=== PATIENT | male | born 1960 | race Asian ===

== ENCOUNTER 2018-11-12 14:37 | Outpatient (REF) | payer MEDICAID, SELFPAY ==
[2018-11-12 18:40] LABS: ALT 28 U/L (12-78); AST 18 U/L (15-37); Albumin 3.7 g/dL (3.4-5.0); Alkaline Phosphatase 76 U/L (46-116); BUN 10 mg/dL (7-18); Bilirubin, Total 0.8 mg/dL (0.2-1.0); CREATININE 0.75 mg/dL (0.70-1.30); Calculated LDL 67 mg/dL; Chloride 105 mmol/L (98-107); Cholesterol 142 mg/dL (50-200); Glucose 89 mg/dL (70-100); HDL Cholesterol 63 mg/dL (40-60); Sodium 143 mmol/L (136-145); Total Protein 7.2 g/dL (6.4-8.2); Triglyceride 61 mg/dL (30-150)
== END 2018-11-12 14:57 ==
LOC: NCHCN 14:37
PROVIDERS: PCP Nurse Practitioner Family; Visit Provider Nurse Practitioner
DX: I10 Essential (primary) hypertension (principal)
CPT/HCPCS: 80053; 80061; 83721

== ENCOUNTER 2020-01-01 10:54 | Outpatient (REF) | payer MEDICAID, SELFPAY ==
[2020-01-01 23:27] LABS: ALT 41 U/L (16-63); AST 26 U/L (15-37); Albumin 3.8 g/dL (3.4-5.0); Alkaline Phosphatase 60 U/L (46-116); Anion Gap 13.4 mmol/L (3-11); BUN 14 mg/dL (7-18); Bilirubin, Total 0.8 mg/dL (0.2-1.0); CO2 23.6 mmol/L (21.0-32.0); CREATININE 0.88 mg/dL (0.70-1.30); Calcium 8.8 mg/dL (8.5-10.1); Calculated LDL 84 mg/dL (<100); Chloride 106 mmol/L (98-107); Cholesterol 161 mg/dL (<200); Glucose 101 mg/dL (74-106); HDL Cholesterol 63 mg/dL (40-60); Potassium 4.1 mmol/L (3.5-5.1); Sodium 143 mmol/L (136-145); Triglyceride 73 mg/dL (<150)
[2020-01-02 18:08] LABS: PSA, Screening 0.2 ng/mL (0.0-4.5)
== END 2020-01-01 11:14 ==
LOC: NCHCN 10:54
PROVIDERS: PCP Nurse Practitioner Family; Visit Provider Nurse Practitioner
DX: I10 Essential (primary) hypertension (principal); Z72.0 Tobacco use; Z12.5 Encounter for screening for malignant neoplasm of prostate
CPT/HCPCS: 80053; 80061; 84153

== ENCOUNTER 2021-02-09 01:13 | Outpatient (CLI) | payer MEDICAID, SELFPAY ==
--- NOTE | 2021-02-09 | DI.CTLCSR_ITS ---
Exam(s) CT CHEST LUNG CANCER SCREEN EXAM: CT CHEST LUNG CANCER SCREEN CLINICAL HISTORY: SCREENING FOR LUNG CA, CURRENT SMOKER, Z72.0. TECHNIQUE: Imaging Protocol: Low Dose Technique CONTRAST MATERIAL: None COMPARISON: No exams were available for comparison FINDINGS: CHEST: Images mildly degraded by motion artifact. LUNGS: There are no ominous pulmonary nodules. Some air trapping is noted in the lower lobes but doub tful for confluent infiltrates. No pleural effusions. No pleural effusions. MEDIASTINUM: There is no obvious hilar nor mediastinal adenopathy. CARDIAC: Heart size is normal. There is no pericardial effusion.Caliber of the thoracic aorta is wit hin normal limits. OTHER: OSSEOUS: No significant osseous lesions.. IMPRESSION: 1. No significant pulmonary nodules nor pleural effusions. No intrathoracic adenopathy. 2. Mild air trapping noted in both lower lobes. 3. Lung RADS Cat 1 - Negative: No nodules and definitely benign nodules Lung-RADS 1.0 CATEGORIES: Category 0 - Prior chest CT exam(s) being located for comparison. Category 1 - Annual screening in 12 months. No nodules or definitely benign nodules. Category 2 - Annual screening in 12 months. Benign appearance. Nodules with low likelihood of becomin g active cancer. Category 3 - 6-month follow-up. Probably benign. Short-term follow-up suggested. Nodules with low lik elihood of becoming active cancer. Category 4A - 3-month follow-up and CT/PET if >8 mm in size. Suspicious finding. Findings which requi re additional testing. Category 4B - Findings which require additional testing and tissue sampling. Modifier S- Potentially clinically significant findings (non lung cancer) RADIATION DOSE DELIVERED: 80.89mGy.cm Total DLP 1.84mGy CTDIvol DATA REPOSITORY: All CT scans at this facility are submitted to the National Radiology Data Registry (NRDR) Dose Index Registry (DIR) with the [employer] ([employer]). RADIATION OPTIMIZATION: All CT scans at this facility use at least one of these dose optimization te chniques: automated exposure control; mA and/or kV adjustment per patient size (includes targeted exa ms where dose is matched to clinical indication); or iterative reconstruction.
== END 2021-02-09 01:33 ==
PROVIDERS: PCP Nurse Practitioner Family; Visit Provider Nurse Practitioner
DX: Z72.0 Tobacco use (principal); Z12.2 Encounter for screening for malignant neoplasm of respiratory organs; F17.210 Nicotine dependence, cigarettes, uncomplicated
CPT/HCPCS: 71271

== ENCOUNTER 2021-07-14 17:48 | Outpatient (REF) | payer MEDICAID, SELFPAY ==
[2021-07-14 14:33] LABS: Abs Immature Grans 0.01 10^3/uL (0.0-0.06); Absolute Basophil Count 0.04 10^3/uL (0.0-0.2); Absolute Eosinophil Count 0.21 10^3/uL (0.0-0.7); Absolute Lymphocyte Count 1.64 10^3/uL (1.2-3.4); Absolute Monocyte Count 0.51 10^3/uL (0.1-0.8); Absolute Neutrophil Count 3.13 10^3/uL (1.2-6.7); Basophils % 0.7; Eosinophils % 3.8; HCT 41.2 % (40.0-50.0); HGB 13.3 g/dL (13.5-17.5); Immature Grans % 0.2; Lymphocytes % 29.6; MCH 32.8 pg (27.0-33.0); MCHC 32.3 % (32.0-36.0); MCV 101.5 fL (80-95); MPV 10.7 fL (8.0-11.0); Monocytes % 9.2; Neutrophils % 56.5; Nucleated RBC 0 %; Platelet Count 280 10^3/uL (130-400); RBC 4.06 10^6/uL (4.36-5.78); RDW 12.4 % (11.8-14.1); RDW-SD 46.5 fL; WBC 5.54 10^3/uL (4.4-10.8)
[2021-07-14 15:02] LABS: ALT 38 U/L (16-63); AST 29 U/L (15-37); Albumin 4.2 g/dL (3.4-5.0); Alkaline Phosphatase 63 U/L (46-116); Anion Gap 9.9 mmol/L (3-11); BUN 16 mg/dL (7-18); Bilirubin, Total 1.1 mg/dL (0.2-1.0); CO2 26.1 mmol/L (21.0-32.0); CREATININE 0.9 mg/dL (0.70-1.30); Calcium 9.7 mg/dL (8.5-10.1); Chloride 99 mmol/L (98-107); Glucose 97 mg/dL (74-106); Potassium 4.1 mmol/L (3.5-5.1); Sodium 135 mmol/L (136-145); Total Protein 8.2 g/dL (6.4-8.2)
[2021-07-15 09:38] LABS: Hepatitis C Ab w Rflx HCV PCR Negative (Negative)
[2021-07-15 09:56] LABS: HIV-1/2 Ag & Ab Screen Negative (Negative)
== END 2021-07-14 17:49 | disposition home or self-care (01) ==
LOC: NCHCN 17:48
PROVIDERS: PCP Nurse Practitioner Family; Visit Provider Nurse Practitioner Family
DX: I10 Essential (primary) hypertension (principal); E78.00 Pure hypercholesterolemia, unspecified; Z72.0 Tobacco use; Z11.4 Encounter for screening for human immunodeficiency virus [HIV]; Z11.59 Encounter for screening for other viral diseases
CPT/HCPCS: 80053; 86803; 87389; 85025

== ENCOUNTER 2022-02-08 16:13 | Outpatient (REF) | payer MEDICAID, SELFPAY ==
[2022-02-08 14:36] LABS: Abs Immature Grans 0.02 10^3/uL (0.0-0.06); Absolute Basophil Count 0.02 10^3/uL (0.0-0.2); Absolute Eosinophil Count 0.14 10^3/uL (0.0-0.7); Absolute Lymphocyte Count 1.76 10^3/uL (1.2-3.4); Absolute Monocyte Count 0.54 10^3/uL (0.1-0.8); Absolute Neutrophil Count 4.07 10^3/uL (1.2-6.7); Basophils % 0.3; Eosinophils % 2.1; HCT 38.2 % (40.0-50.0); HGB 12.7 g/dL (13.5-17.5); Immature Grans % 0.3; Lymphocytes % 26.9; MCH 33.8 pg (27.0-33.0); MCHC 33.2 % (32.0-36.0); MCV 102 fL (80-95); MPV 11.2 fL (8.0-11.0); Monocytes % 8.2; Neutrophils % 62.2; Platelet Count 240 10^3/uL (130-400); RBC 3.76 10^6/uL (4.36-5.78); RDW 12.7 % (11.8-14.1); RDW-SD 47.6 fL; WBC 6.55 10^3/uL (4.4-10.8)
[2022-02-08 15:00] LABS: Iron 129 ug/dL (65-175); Total Iron Binding Capacity 359 ug/dL (250-450); Transferrin Sat 36 % (20-55)
[2022-02-08 15:19] LABS: ALT 40 U/L (16-63); AST 44 U/L (15-37); Albumin 3.9 g/dL (3.4-5.0); Alkaline Phosphatase 57 U/L (46-116); BUN 20 mg/dL (7-18); Bilirubin, Total 0.6 mg/dL (0.2-1.0); CREATININE 0.7 mg/dL (0.70-1.30); Calcium 9.8 mg/dL (8.5-10.1); Calculated LDL 89 mg/dL (<100); Chloride 103 mmol/L (98-107); Cholesterol 183 mg/dL (<200); Estimated GFR 104.18 (mL/min/1.73m2); Ferritin 140 ng/mL (26-388); Glucose 93 mg/dL (74-106); HDL Cholesterol 70 mg/dL (40-60); Sodium 139 mmol/L (136-145); TSH (W/Ref FT4) 1.45 uIU/mL (0.36-3.74); Total Protein 8.3 g/dL (6.4-8.2); Triglyceride 124 mg/dL (<150)
[2022-02-08 15:27] LABS: Folate > 20.0 ng/mL (8.6-20.0)
[2022-02-10 12:02] LABS: c-ANCA Negative (Negative); p-ANCA Negative (Negative)
== END 2022-02-08 16:14 | disposition home or self-care (01) ==
LOC: NCHCN 16:13
PROVIDERS: PCP Nurse Practitioner Family; Visit Provider Nurse Practitioner Family
DX: I10 Essential (primary) hypertension (principal); E78.00 Pure hypercholesterolemia, unspecified; D64.9 Anemia, unspecified; Z87.891 Personal history of nicotine dependence
CPT/HCPCS: 80053; 80061; 82728; 82746; 83540; 83550; 84425; 84443; 85025; 86255

== ENCOUNTER 2022-03-29 15:48 | Outpatient (REF) | payer MEDICAID, SELFPAY ==
[2022-03-29 18:53] LABS: Abs Immature Grans 0.02 10^3/uL (0.0-0.06); Absolute Basophil Count 0.04 10^3/uL (0.0-0.2); Absolute Eosinophil Count 0.24 10^3/uL (0.0-0.7); Absolute Neutrophil Count 3.88 10^3/uL (1.2-6.7); Basophils % 0.6; Eosinophils % 3.6; HCT 36.9 % (40.0-50.0); HGB 12.1 g/dL (13.5-17.5); Immature Grans % 0.3; Lymphocytes % 28.4; MCH 32.5 pg (27.0-33.0); MCHC 32.8 % (32.0-36.0); MCV 99 fL (80-95); MPV 10.5 fL (8.0-11.0); Neutrophils % 58.1; Platelet Count 296 10^3/uL (130-400); RBC 3.72 10^6/uL (4.36-5.78); RDW 12.5 % (11.8-14.1); RDW-SD 45.4 fL; WBC 6.68 10^3/uL (4.4-10.8)
[2022-03-29 19:32] LABS: ALT 26 U/L (16-63); AST 18 U/L (15-37); Alkaline Phosphatase 63 U/L (46-116); Anion Gap 5.6 mmol/L (3-11); BUN 15 mg/dL (7-18); Bilirubin, Total 0.6 mg/dL (0.2-1.0); CO2 31.4 mmol/L (21.0-32.0); Calcium 9.6 mg/dL (8.5-10.1); Chloride 99 mmol/L (98-107); Ferritin 170 ng/mL (26-388); Folate 18.9 ng/mL (8.6-20.0); Glucose 106 mg/dL (74-106); Potassium 4.1 mmol/L (3.5-5.1); Sodium 136 mmol/L (136-145); Total Protein 8.1 g/dL (6.4-8.2); Vitamin B12 637 pg/mL (193-986)
[2022-03-29 20:31] LABS: Iron 138 ug/dL (65-175); Total Iron Binding Capacity 329 ug/dL (250-450); Transferrin Sat 42 % (20-55)
[2022-03-29 21:06] LABS: Vitamin D 25 Total 42.4 ng/mL (30-100)
[2022-04-05 11:08] LABS: Thiamine (Vitamin B1), WB 106 nmol/L (70-180)
== END 2022-03-29 15:49 | disposition home or self-care (01) ==
LOC: NCHCN 15:48
PROVIDERS: PCP Nurse Practitioner Family; Visit Provider Nurse Practitioner Family
DX: I10 Essential (primary) hypertension (principal); D64.9 Anemia, unspecified; F10.99 Alcohol use, unspecified with unspecified alcohol-induced disorder; Z87.891 Personal history of nicotine dependence
CPT/HCPCS: 80053; 82306; 82607; 82728; 82746; 83540; 83550; 84425; 85025

== ENCOUNTER 2023-03-07 08:14 | Day surgery (SDC) | payer MEDICAID, SELFPAY ==
--- NOTE | 2023-03-06 19:46 | HPE_ITS ---
Date of service: 03/07/23 Time of Service: 09:15 Assessment and Plan Assessment and plan (1) Alcohol use: Status: Acute (2) Hypertension: Status: Chronic (3) Hypercholesterolemia: Status: Acute (4) Patient speaks only a foreign language: Status: Acute (5) Anemia: Status: Chronic (6) Macrocytic anemia: Status: Acute Assessment and plan: Plan: Colonoscopy w/ general & natural airway. Informed consent is obtained for the procedural (explained in simple layman's terms that?the pt and/or family could understand) explaining risks vs benefits and alternatives to the procedure and consequences if we do not do the procedure and need/rational for the procedure. Risks include but are not limited to: bleeding, infection, perforation of colon.? This would necessitate emergency surgery to repair the damage w/ possible ostomy; and other associated complications w/ the required surgery. ? Also complications of anesthesia including aspiration, OH/CVA/, inability to complete the procedure. I discussed with the?patient would they could expect during the procedure, post procedure and recovery time and risks.? The patient understands that they need to have a ride home after the procedure.? The patient was given all this information in writing and expressed understanding. Generally Colonoscopy does not require antibiotics prophylaxis, History of Present Illness Narrative: Today Patient is here today for colonoscopy for CRC screening.??? They completed a bowel prep with just a clear yellow residual effluent.? They not having any chest pain or shortness of breath, currently.? They are not experiencing any fever or chills.? They deny any productive cough or upper respiratory tract infection signs or symptoms.? They are not having abdominal pain, or nausea and vomiting.? They have not had any changes in medications, past medical history or past surgical history since previously being seen in the office. They have not had any accidents or have been in the ER since the clinic pre-operative evaluation. ??I reviewed the procedure with the patient today, including risks and benefits of the procedure, and what they could expect at home for recovery.? All questions are answered to the patient?s satisfaction today, and they are stable to proceed with the proposed procedure. PShx CE wrist ear no problems w/ anethesia. Clinic 01/12/23 Anesthesia: general (without airway) Previous surgical intolerances: None Previous surgical complications: None Pulmonary risk factors: None PFT's: None Planned procedure: Yes Sleep apnea risks: No Can climb one flight of stairs (12-13 steps) in less than 30 seconds without stopping and without symptoms: Yes The surgery proposed for this patient is: Low risk Active cardiac conditions: None ECHO: None Stress Test: None Active risk factors: None ASA (acetylsalicylic acid):No Beta blockers: No Anti-coagulation: N/A Medications to be held: Vitamins and supplements x 5 days prior Lisinopril the morning of the procedure. Written instructions were provided in Cantonese using a translation colonoscopy under sedation 62 y/o male with history of ETOH use and HTN presents for colonoscopy screening pre-op. Today the interpretor line was used for translation to Cantonese. Last Colonoscopy was in 2010 which was unremarkable. He denies a family history of colon cancer. He denies any changes in bowel habits including bloody or black tarry stools, abdominal pain, diarrhea or constipation. He denies constitutional symptoms. He denies chest pain, palpitations, dyspnea or dyspnea with exertion. He denies prior history or family history of adverse reactions or complications with anesthesia. The patient denies any history of stroke, OH, seizures, bleeding or clotting disorders. He denies having any implanted metal. Review of Systems All systems reviewed & are unremarkable except as noted in HPI and below PFSH All Active Problems (Updated 03/06/23 @ 19:56 by Daria Peterson DO) Macrocytic anemia (Acute) Alcohol use (Acute) Hypertension (Chronic) Hypercholesterolemia (Acute) Patient speaks only a foreign language (Acute) Anemia (Chronic) Social History Smoking/Tobacco Use Status: Former Tobacco Use tobacco type: cigarettes Smoking risk assessment performed?: Yes Alcohol Intake: current Alcohol Intake frequency: 3 or more drinks per day Alcohol type: beer Drug use: Never Substance use type: does not use Details: 03/07/23:last drank 3 beers 2 days ago Housing: house Meds Allergies and Home Medications Allergies Allergy/AdvReac Type Severity Reaction Status Date / Time No Known Allergies Allergy Unverified 03/07/23 08:47 Home Medications Medication Instructions Recorded Confirmed Type vitamins A and D3 in cod liver oil 1 ea PO DAILY 11/19/12 03/07/23 History 1,250 unit-135 unit capsule (cod liver oil) amlodipine 5 mg tablet 5 mg PO DAILY 08/15/22 03/07/23 History hydrochlorothiazide 12.5 mg tablet 12.5 mg PO DAILY 08/15/22 03/07/23 History lisinopril 30 mg tablet 30 mg PO DAILY 08/15/22 03/07/23 History pravastatin 20 mg tablet 20 mg PO DAILY 08/15/22 03/07/23 History Exam Narrative Exam Narrative: PHYSICAL EXAM GENERAL APPEARANCE: Alert, healthy appearance, oriented, x 3,? in no acute distress HYDRATION: Well hydrated HEAD, EYES, EARS, NECK, THROAT: Head is normocephalic, pupils equal, round, reactive to light and accommodation, ocular movement intact, sclera clear and no jaundice. ?Dentition intact. LUNGS: normal respiration/normal chest excursion. ?Clear to auscultation bilaterally. ?No wheeze. ?HEART: Regular rate and rhythm. no murmurs ABDOMEN: soft and non-tender to palpation.? Normal bowel sounds.?.? Anemia profile Hgb 12.1 g/dL (13.5-17.5) L 03/29/22 Hct 36.9 % (40.0-50.0) L 03/29/22 MCV 99 fL (80-95) H 03/29/22 RDW 12.5 % (11.8-14.1) 03/29/22 Iron 138 ug/dL (65-175) 03/29/22 Ferritin 170 ng/mL (26-388) 03/29/22 TIBC 329 ug/dL (250-450) 03/29/22 Transferrin % Sat 42 % (20-55) 03/29/22 Vitamin B12 637 pg/mL (193-986) 03/29/22 Folate 18.9 ng/mL (8.6-20.0) 03/29/22 CBC White Blood Count 6.68 10^3/uL (4.4-10.8) 03/29/22 Red Blood Count 3.72 10^6/uL (4.36-5.78) L 03/29/22 Hemoglobin 12.1 g/dL (13.5-17.5) L 03/29/22 Hematocrit 36.9 % (40.0-50.0) L 03/29/22 Mean Corpuscular Volume 99 fL (80-95) H 03/29/22 Mean Corpuscular Hemoglobin 32.5 pg (27.0-33.0) 03/29/22 Mean Corpuscular Hemoglobin Concent 32.8 % (32.0-36.0) 03/02 01/20 Red Cell Distribution Width 12.5 % (11.8-14.1) 03/29/22 Platelet Count 296 10^3/uL (130-400) 03/29/22 Mean Platelet Volume 10.5 fL (8.0-11.0) 03/29/22 Neutrophils % 58.1 03/29/22 Lymphocytes % 28.4 03/29/22 Monocytes % 9.0 03/29/22 Eosinophils % 3.6 03/29/22 Basophils % 0.6 03/29/22 Immature Granulocytes % 0.3 03/29/22 Comprehensive Metabolic Panel Sodium 136 mmol/L (136-145) 03/29/22 15:30 Potassium 4.1 mmol/L (3.5-5.1) 03/29/22 15:30 Chloride 99 mmol/L (98-107) 03/29/22 15:30 Carbon Dioxide 31.4 mmol/L (21.0-32.0) 03/29/22 15:30 BUN 15 mg/dL (7-18) 03/29/22 15:30 Creatinine 1.0 mg/dL (0.70-1.30) 03/29/22 15:30 Estimated GFR/1.73 m2 >= 60.00 (mL/min/1.73m2) 07/14/21 10:50 Glucose 106 mg/dL (74-106) 03/29/22 15:30 Calcium 9.6 mg/dL (8.5-10.1) 03/29/22 15:30 Total Bilirubin 0.6 mg/dL (0.2-1.0) 03/29/22 15:30 ALT 26 U/L (16-63) 03/29/22 15:30 AST 18 U/L (15-37) 03/29/22 15:30 Alkaline Phosphatase 63 U/L (46-116) 03/29/22 15:30 Total Protein 8.1 g/dL (6.4-8.2) 03/29/22 15:30 Albumin 4.0 g/dL (3.4-5.0) 03/29/22 15:30 Diabetes results Glucose 106 mg/dL (74-106) 03/29/22 Total Cholesterol 183 mg/dL (<200) 02/08/22 LDL Cholesterol, Calc 89 mg/dL (<100) 02/08/22 LDL Cholesterol Direct 55 mg/dL (<100) 11/07/16 HDL Cholesterol 70 mg/dL (40-60) 02/08/22 Triglycerides 124 mg/dL (<150) 02/08/22 BUN 15 mg/dL (7-18) 03/29/22 Creatinine 1.0 mg/dL (0.70-1.30) 03/29/22 Estimated GFR/1.73 m2 >= 60.00 (mL/min/1.73m2) 07/14/21 Est GFR (CKD-EPI 2020) 85.10 (mL/min/1.73m2) 03/29/22 Sodium 136 mmol/L (136-145) 03/29/22 Potassium 4.1 mmol/L (3.5-5.1) 03/29/22 Chloride 99 mmol/L (98-107) 03/29/22 Carbon Dioxide 31.4 mmol/L (21.0-32.0) 03/29/22 Calcium 9.6 mg/dL (8.5-10.1) 03/29/22 AST 18 U/L (15-37) 03/29/22 ALT 26 U/L (16-63) 03/29/22 Total Protein 8.1 g/dL (6.4-8.2) 03/29/22 Albumin 4.0 g/dL (3.4-5.0) 03/29/22 TSH 1.45 uIU/mL (0.36-3.74) 02/08/22 Vitamin B12 637 pg/mL (193-986) 03/29/22 Time Spent Time spent with Patient: <40 minutes Time was spent: preparing to see the patient(eg.review tests), obtaining and/or reviewing separately otained hiistory, ordering medications,tests, procedures, referring, communicating with other health senior resident care director, indepentently interpreting results, counseling the patient and care coordination
--- NOTE | 2023-03-06 19:59 | PDOC.DSDIS_ITS ---
Date of service: 03/07/23 Time of Service: 10:11 Discharge Plan Disposition Patient Disposition: Home Condition: Good Discharge Details Reason For Visit: colon scope Attending Provider: Daria Peterson Primary Care Provider: ANIL ROBERSON Home Meds and New Rx's Prescriptions: Continued amlodipine 5 mg tablet 5 mg PO DAILY lisinopril 30 mg tablet 30 mg PO DAILY pravastatin 20 mg tablet 20 mg PO DAILY hydrochlorothiazide 12.5 mg tablet 12.5 mg PO DAILY vit A and D3 in cod liver oil [cod liver oil] 1 EACH capsule 1 ea PO DAILY Discontinued bisacodyl [Dulcolax (bisacodyl)] 5 mg tablet,delayed release (DR/EC) 5 mg PO ONCE Qty: 4 0RF Rx Instructions: Take per colonoscopy instructions provided by ordering providers office polyethylene glycol 3350 17 gram/dose powder 17 g PO ONCE Qty: 238 0RF Rx Instructions: Take per colonoscopy instructions provided by ordering providers office Discharge Instructions Additional Instructions: [facility] Colonoscopy Post- Op Instructions Instructions for Everyone who is given Anesthesia: For your safety, please do the following for the next twenty-four (24) hours: *Do Not operate a motor vehicle (car, truck, motorcycle, etc.) *Do Not drink alcoholic beverages or use any recreational drugs for the first 24 hours or while taking pain medications. The medications in your body may have a reaction that can be dangerous. *Do Not make any important decisions or sign any important papers. Findings: polyps and diverticula Follow up: My office will send you a letter in 2 to 3 weeks time with the results of the polyps and when we want you to repeat your colonoscopy. 1. No lifting over 20 pounds or strenuous activity for the first 24 hours after your procedure. After 24 hours there are no restrictions on your activity but you may feel fatigued for a few days. 2. After you arrive home you may have a light meal and return to your normal diet as you can tolerate it without feeling sick to your stomach. 3. You may have a bloated, gaseous feeling in your belly (abdomen) after a colonoscopy. Passing gas and belching will help. Walking or lying down on your left side with your knees flexed may relieve the discomfort. Call the office at [phone] (Office) or [phone] (Hospital) right away if you notice any of the following: a.Vomiting of blood or ?coffee ground stools?. b.Rectal bleeding 1Tbsp, blood clots or continuous bleeding. c.Severe belly (abdominal) pain. d.A hard distended belly (abdomen) and an inability to pass gas. 4. Please don?t expect to have a normal BM (bowel movement) for 2-3 days after your procedure. 5. If there are questions regarding the findings of your procedure, please contact your doctor 6. If you are unable to contact your doctor with a problem, contact the hospital at [phone]. 7. Continue all your regular medications unless directed otherwise. I understand the above instructions and have no questions. Signature of Patient or Adult Escort Name of Responsible Adult Escort Signature of Nurse Date/Time DIVERTICULAR DISEASE OVERVIEW???A diverticulum is a pouch-like structure that can form through points of weakness in the muscular wall of the colon (ie, at points where blood vessels pass through the wall). Diverticulosis affects men and women equally. The risk of diverticular disease increases with age. It occurs throughout the world but is seen more commonly in developed countries. WHAT IS DIVERTICULAR DISEASE? Diverticulosis???Diverticulosis merely describes the presence of diverticula. Diverticulosis is often found during a test done for other reasons, such as flexible sigmoidoscopy, colonoscopy, or barium enema. Most people with diverticulosis have no symptoms and will remain symptom free for the rest of their lives. A person with diverticulosis may have diverticulitis, or diverticular bleeding. Diverticulitis???Inflammation of a diverticulum (diverticulitis) occurs when there is thinning and breakdown of the diverticular wall. This may be caused by increased pressure within the colon or by hardened particles of stool, which can become lodged within the diverticulum. The symptoms of diverticulitis depend upon the degree of inflammation present. The most common symptom is pain in the left lower abdomen. Other symptoms can include nausea and vomiting, constipation, diarrhea, and urinary symptoms such as pain or burning when urinating or the frequent need to urinate. Diverticulitis is divided into simple and complicated forms. ?Simple diverticulitis, which accounts for 75 percent of cases, is not associated with complications and typically responds to medical treatment without surgery. ?Complicated diverticulitis occurs in 25 percent of cases and usually requires surgery. Complications associated with diverticulitis can include the following: ?Abscess ? a localized collection of pus ?Fistula ? an abnormal tract between two areas that are not normally connected (eg, bowel and bladder) ?Obstruction ? a blockage of the colon ?Peritonitis ? infection involving the space around the abdominal organ ?Sepsis ? overwhelming body-wide infection that can lead to failure of multiple organs Diverticular bleeding???Diverticular bleeding occurs when a small artery located within a diverticulum is eroded and bleeds into the colon. Diverticular bleeding usually causes painless bleeding from the rectum. In approximately 50 percent of cases, the person will see maroon or bright red blood with bowel movements. Is bleeding with a bowel movement normal?It is not normal to see blood in a bowel movement; this can be a sign of several conditions, most of which are not serious (eg, hemorrhoids) but some of which are serious and require immediate treatment. Anyone who sees blood after a bowel movement should consult with their healthcare provider to determine if further testing or evaluation is needed. DIVERTICULOSIS AND DIVERTICULITIS DIAGNOSIS???Diverticulosis is often found during tests performed for other reasons. ?Barium?enema ? This is an x-ray study that uses barium in an enema to view the outline of the lower intestinal tract. This is an older test and has been largely replaced by computed tomography (CT) scan. ?Flexible sigmoidoscopy ? This is an examination of the inside of the sigmoid colon with a thin, flexible tube that contains a camera. ?Colonoscopy ? This is an examination of the inside of the entire colon. ?CT scan ? A CT scan is often used to diagnose diverticulitis and its complicati ons. If diverticulitis (not just diverticulosis) is suspected, the above three tests should not be used because of the risk of perforation. TREATMENT Diverticulosis???People with diverticulosis who do not have symptoms do not require treatment. However, most clinicians recommend increasing fiber in the diet, which can help to bulk the stools and possibly prevent the development of new diverticula, diverticulitis, or diverticular bleeding. Fiber is not proven to prevent these conditions in all patients but may help to control recurrent episodes in some. Increase fiber???Fruits and vegetables are a good source of fiber.? Fiber content of packaged foods can be calculated by reading the nutrition label. Seeds and nuts???Patients with diverticular disease have historically been advised to avoid whole pieces of fiber (such as seeds, corn, and nuts) because of concern that these foods could cause an episode of diverticulitis. However, this belief is completely unproven. We do not suggest that patients with diverticulosis avoid seeds, corn, or nuts. Diverticulitis???Treatment of diverticulitis depends upon how severe your symptoms are. Home treatment???If you have mild symptoms of diverticulitis (mild abdominal pain, usually left lower abdomen), you can be treated at home with a clear liquid diet and oral antibiotics. However, if you develop one or more of the following signs or symptoms, you should seek immediate medical attention: ?Temperature >100.1?F (38?C) ?Worsening or severe abdominal pain ?An inability to tolerate fluids Hospital treatment???If you have moderate to severe symptoms, you may be hospitalized for treatment. During this time, you are not allowed to eat or drink; antibiotics and fluids are given into a vein. If you develop an abscess of the colon, you may require drainage of the abscess (usually performed by placing a drainage tube across the abdominal wall) or by surgically opening the affected area. Surgery???If you develop a generalized infection in the abdomen (peritonitis), you will usually require an emergency operation. A two-part operation may be ne cessary in some cases. ?The first operation involves removal of the diseased colon and creation of a colostomy. A colostomy is an opening between the colon and the skin, where a bag is attached to collect waste from the intestine. The lower end of the colon is temporarily sewed closed to allow it to heal. ?Approximately three to six months later, a second operation is performed to reconnect the two parts of the colon and close the opening in the skin. You are then able to empty your bowels through the rectum. Sometimes patients require up to a year to recover from the first operation, depending on how sick they were. In non-emergency situations, the diseased area of the colon can be removed and the two ends of the colon can be reconnected in one operation, without the need for a colostomy. Surgery versus medical therapy???An operation to remove the diseased area of the colon may be necessary if you do not improve with medical therapy. After an episode of uncomplicated diverticulitis, elective surgery is generally not required as the risk of another attack or requiring emergency surgery is low. However, patients with persistent symptoms attributable to diverticulitis, a history of complicated diverticulitis, or a compromised immune system should be evaluated for possible surgery to prevent another attack. In such patients, another attack has been associated with a higher risk of complications or . Of course, the decision will also depend in part upon your other medical conditions and ability to undergo surgery. In many cases, an elective operation can be performed laparoscopically, using small incisions, rather than the typical vertical (up and down) abdominal incision. Laparoscopic surgery usually allows you to recover more quickly and shortens the hospital stay. After diverticulitis resolves???After an episode of diverticulitis resolves, if you have not had a recent colonoscopy, the entire length of the colon should be evaluated to determine the extent of disease and to rule out the presence of abnormal lesions such as polyps or cancer. Recommended tests include colonoscopy, barium enema and sigmoidoscopy, or CT colonography. Diverticular bleeding???Most cases of diverticular bleeding resolve on their own. However, some people will need further testing or treatment to stop bleeding, which may include a colonoscopy, angiography (a treatment that blocks off the bleeding artery), bleeding scan, or surgery. DIVERTICULAR DISEASE PROGNOSIS Diverticulosis???Over time, diverticulosis may cause no problems or it may cause episodes of bleeding and/or diverticulitis. Approximately 15 to 25 percent of people with diverticulosis will develop diverticulitis, while 5 to 15 percent will develop diverticular bleeding. Diverticulitis???Approximately 85 percent of people with uncomplicated diverticulitis will respond to medical treatment, while approximately 15 percent of patients will need an operation. After successful treatment for a first attack of diverticulitis, one-third of patients will remain asymptomatic, one- third will have episodic cramps without diverticulitis, and one-third will go on to have a second attack of diverticulitis. The prognosis tends to remain similar following a second attack of diverticulitis. Only 10 percent of people remain symptom-free after a second attack. Subsequent attacks tend to be of similar severity, not increasing in severity as previously believed. High Fiber Diet What is Dietary Fiber? All fiber comes from plants, bushes, dallin or trees.? Of course, the ones that we eat provide us with fruits, vegetables and grains.? There are many different types of fiber but the three that are most important to the health of the body are: Insoluble Fiber This fiber does not dissolve in water, nor is it fermented by the bacteria residing in the colon.? Rather, it retains water and in so doing, helps to promote a larger, bulkier and more regular bowel activity.? This, in turn, may be important in preventing disorder such as diverticulosis and hemorrhoids, and in sweeping out certain toxins and cancer causing carcinogens.? Sources of insoluble fiber are: ? whole grain wheat and other whole grains ? corn bran, including popcorn, unflavored and unsweetened ? nuts and seeds ? potatoes and the skins from most fruits from trees such as apples, bananas and avocados ? many green vegetables such as green beans, zucchini, celery and cauliflower ? some fruit plants such as tomatoes and kiwi Soluble Fiber These fibers are fermented or used by the colon bacteria as a food source or nourishment.? When these good bacteria grow and thrive, many health benefits occur in both the colon and the body.? Soluble fiber is present in some degree in most edible plant foods, but the ones with the most soluble fiber include: ? legumes such as peas and most beans, including soybeans ? oats, rye and barley ? many fruits such as berries, plums, apples bananas and pears ? certain vegetables such as broccoli and carrots ? most root vegetables ? psyllium husk supplement products Benefits of a High Fiber Diet The health benefits of a high fiber diet, consumed on a regular basis and reaching recommended amounts (below), are now fairly well-defined. There are some additional benefits in the early research stage with the prebiotic soluble fibers. What is now known regarding a high fiber diet include: Bowel Regularity A high fiber diet promotes regularity with a softer, bulkier and regular stool pattern. This decreases the chance of hemorrhoids, diverticulosis and perhaps colon cancer. Cholesterol and Reduced Triglycerides The soluble fibers are the ones that will reduce cholesterol levels when used on a regular basis. Psyllium husk and prebiotic soluble fiber will also reduce chol esterol. They may also reduce the incidence of coronary heart disease. Oats, flax seeds and legumes or beans are the recommended fibers. Colon Polyps and Cancer It is still not certain if a high fiber diet helps prevent colon cancer. Considerable research suggests that this may occur. Certainly it makes sense to increase regularity and so speed the movement of cancer causing carcinogens through the bowel. In addition, reducing a heavy meat diet reduces the bile flow from the liver in a favorable way. This, too, reduces the amount of carcinogens that reach and are manufactured in the colon. Finally, a high fiber diet, including prebiotic soluble fiber, increases the integrity and health of the wall of the colon. The risk of cancer may be reduced. Colon Wall Integrity A high fiber diet changes the bacterial makeup of the colon toward a more favorable balance. For instance, it is known that those people with obesity, diabetes type 2 and inflammatory bowel disease have a predominance of bad bacteria in the colon. This, in turn, may render the bowel wall weak and allow bacteria and, indeed, even toxins to seep through. A high fiber diet with a modest reduction in animal and meat products may return the bacterial makeup to a more positive balance. This, in particular, has been seen when the soluble fiber prebiotics are added to the diet. Blood Sugar Soluble fiber such as in legumes (beans), oats and in prebiotic fibers slows the absorption of blood sugar and so helps regulate the sugar in the blood. Insoluble fiber on a regular basis is associated with reduced risk of type 2 diabetes. Weight Loss High fiber diets are more filling and give a sense of fullness sooner than an animal and meat based diet does. In addition, the soluble prebiotic fibers have been shown to turn off the hunger hormones produced in the wall of the gut and to increase the hormones that give a sense of fullness. Those hormones are made in the wall of the gut. New medical research has shown that the bacterial makeup in the colon in overweight people is abnormal to the extent that they manufacture and absorb almost twice the number of calories through the colon wall as do normals. Prebiotic fibers (below) will help change this hormonal balancein a favorable way. Bacteria and the Function of the Colon The colon finishes the digestive process. Hopefully, the waste products move through in a nice regular manner. Insoluble fibers help this process by retaining water and so producing a bulkier, softer stool, which is easy to pass. The additional role of the colon is to provide a home for an enormous number of micro-organisms, mostly bacteria. Recent research has shown that there are over 1,000 species of bacteria with a total bacterial count ten times the number of cells in the body. These bacteria play a major role in keeping the colon wall itself healthy. In addition, these good bacteria produce a very strong immune system for the body. They significantly increase calcium absorption and bone density. They provide other documented benefits. It is the soluble fibers in the diet that are so effective in stimulating the growth of good colon bacteria. How Much is Enough? The amount of fiber in food is measured in grams.? National nutritional authorities recommend the following amounts of dietary fiber daily. Under Age 50? Over Age 50 Men? 38 grams? 30 grams Women??? 25 grams? 21 grams For a week or so, it is best to tally the amount of fiber you are consuming.? Boxed and packaged foods will have the amount of fiber per serving on the nutrition label. Which Fibers and Which Foods are Best? As noted, healthy fiber is only found in plants. The three major categories are whole grains, fruits and vegetables. Whole Grains Wheat, oats, barley, wild or brown rice, amaranth, buckwheat, bulgur, corn, millet, quinoa, rye, sorghum, teff and triticals. By far, wheat, oats and wild or brown rice are most common. Always buy whole grain products. White bread, baked goods and rolls almost always are made from wheat flour. Wheat flour is white because most of the fiber, vitamins and other nutrients have been removed. Try not buy enriched grains. What this means is that simple white flour has had vitamins added to it by the real time analyst. The word, enriched, implies a good and healthy product. On the contrary, enriched means that most of the fiber has been removed and a few vitamins added. Fruits Fruits come from trees such as apple and pear or from bushes or dallin. You should eat a wide variety of fruits, preferably with every meal. In many cases, the skin of a fruit such as apple will contain much of the insoluble fiber while the pulp contains most of the soluble fiber. To the extent possible, buy organic fruits as these will have little or no pesticides. Always wash fruit. Vegetables Eat a wide variety of vegetables. They should be a mainstay of lunch and dinners. Frozen vegetables retain as much nutrition and fiber as fresh vegetables. As with fruit, try to buy organic to reduce any residual pesticide ingestion. Wash fresh vegetables thoroughly. Cruciferous vegetables such as broccoli, Pearl sprouts and cauliflower contain certain chemicals such as sulforaphane. This substance has very strong anti-cancer properties and should be eaten frequently. Legumes, Beans, Peas and Soybeans These vegetables have plenty of soluble fiber and should be part of a varied vegetable intake. Beans, in particular, contain a certain type of fiber that may lead to harmless gas or bloating. Nuts and Seeds These are rich sources of fiber and are a good substitute for sweets such as candies and baked sweet goods. While nuts and seeds are rich in fiber, they also contain vegetable fat and so can and do add calories. Read the Labels As noted, fresh and frozen foods are usually better.? They have good nutrition and few, if any, chemicals added to them.? When buying packaged foods and, in pa rticular grains, look for three things: ? The first word on the label should be whole, such as whole wheat or whole grain. ? Check out the calories and the amount of fiber in a serving. ? How many and what other additives or chemicals are added.? Fewer is always better.? Do you know what each additive does?? Some are added not for the benefit of the hearing dog trainer but rather for manufacturers.? These could and do include sugar, artificial flavor, chemicals to prevent oxidation and spoilage, emulsifiers to blend the product.? You have to be a narcotics and vice detective. Fiber Facts, Nuggets and Pearls ? For breakfast you can easily get the day started well by using a high fiber, whole grain cereal.? Check the labels.? Add fruit such as blueberries and bananas.? If you are an egg eater, use whole wheat or grain toast.? Adding wheat germ gives you a good fiber kick. ? Always use whole grain or wheat with rolls and sandwiches.? Does your fast food store not have them?? Perhaps you look elsewhere.? Eating an occasional black quintero or veggie burger provides variety. ? Snacks should consist of fruit and/or nuts.? While nuts are loaded with fiber, they are an energy rich food, meaning they have a lot of calories in a small packet. ? Fruit juices should contain pulp.? Clear juices such as clear orange, pear or apple juice contain little fiber and have a lot of fructose.? Prune juice is usually high in fiber. ? Homemade soups ? adding fresh or frozen vegetables to a chicken or vegetable stock is a good way to start homemade soup. ? Salads ? adding cooked and then chilled vegetables provide great flavoring to almost any salad.? Remember, a walker salad has lots of cooked corn in it.? Small slices of apples or oranges and nuts such as chopped walnuts or sliced almonds always adds taste, variety and fiber to almost any salad. ? Fruit ? Try to eat fruit of some type with almost every meal. ? Rethink how you place the various foods on your dinner plate.? Reducing the portions of the meat or animal food portion to the side with equal or more portions of vegetables, legumes and fruits portion always allows for more fiber.? There was never anything magic about making the meat or animal food portion the main part of the dinner plate.? Eating from smaller plates can, over time, trick your mind and senior living habit of using a dinner plate.? Again, there is nothing magic in an 11, 12, or 13 inch dinner plate. Fiber Supplements There are a variety of fiber supplements available on the food or pharmacy shelves. Psyllium This soluble plant fiber has been used in Rosie for over 2,000 years. It is a soluble fiber with mucilage in it. This acts to retain a lot of water and also is fermented by colon bacteria. When 7 grams a day are used, it does lower cholesterol. Metamucil in various forms is psyllium. Methyl Cellulose All the cellulose products come from finely ground wood chips which are then treated in a variety of ways such as boiling in acids. Methyl cellulose is an insoluble fiber which does dissolve in water. It is also an emulsifier, meaning it blends oils and water. Citrucel is methyl cellulose (MC). MC may not be appropriate for Crohn?s disease or ulcerative colitis as several medical studies have shown that certain emulsifiers dissolve the mucous lining of the colon in animals prone to Crohn?s disease. This then allows bacteria to invade the underlying tissue. Fiber and Gas Everyone has intestinal gas and that is a good thing.? It means that bacteria, hopefully the good ones, are thriving.? The normal amount of flatus passed each day depends on sex and what is eaten.? The normal number of flatus is 10-20 times a day.? When the bacteria that make intestinal gases are growing, it also means that other good bacteria are using the same fibers to grow and produce multiple health benefits, including the production of healthy short-chain fatty acids.? These substances are produced quietly in the colon and produce many health-related outcomes. Soluble fiber should always be used in a gradual manner.? If too much is consumed at any one time, then excess, but harmless, intestinal gas can occur.? People with irritable bowel syndrome are particularly prone to bloating and mild cramping.? In this instance, soluble fiber in the diet or supplement should be used in small doses and increased gradually. Finally, prebiotic fibers tend to cause the production of short-chain fatty acids which acidify the colon.? This, in turn, reduces or stops the growth of bacteria that make the smelly hydrogen sulfide gases that produce noxious flatu s.? People who consume many vegetables with prebiotics or take a prebiotic fiber supplement often have non-odoriferous flatus. Fiber and Irritable Bowel Syndrome Irritable bowel syndrome (IBS) is one of the most common disorders of the lower digestive tract.? The symptoms of IBS can be quite varied.? They can be a mix of several symptoms such as constipation, diarrhea, crampy abdominal discomfort, bloating and gas.? An attack of IBS can be triggered by emotional tension and anxiety, poor dietary habits and certain medications.? It is now known that infections in the intestine can lead to long-term IBS symptoms.? Increased amounts of fiber in the diet can help relieve the symptoms of irritable bowel syndrome by producing soft, bulky stools.? This helps to normalize the time it takes for the stool to pass through the colon.? Recent medical research with newer techniques has shown some surprising and dramatic findings for IBS patients.? Specifically, there is a very significant and abnormal shift of bacteria from those that provide health benefits to those bad bacteria that we really do not want in the gut.? The technical name for this bad group of bacteria is called Firmicutes.? Along with this abnormal bacterial collection, there is a smoldering low-grade inflammation in the gut wall that may contribute to symptoms.? The goal for IBS patients should be to gradually increase the soluble dietary fibers in the diet so as to promote the growth of good bacteria and so suppress the bad ones along with the associated inflammation. IBS patients need to be careful of the amount of soluble fiber they consume.? The reason for this is that, while the good colon bacteria thrive on these fibers and produce health benefits, other gas-forming bacteria may generate excessive but harmless gas and subsequent bloating.? Thus, soluble plant fibers or a dietary prebiotic supplement should be taken in small initial doses and then gradually increased to tolerance. Fiber and Colon Polyps/Cancer Colon cancer is a major health problem. This disease is most common in Western cultures. It is not seen very often in rural cultures where the diet is mostly plant based. Usually, colon cancer starts out as a colon polyp, a benign mushroom-shaped growth. In time it grows, and in some people it becomes cancerous. Colon cancer is usually always curable if polyps are removed when found or if surgery is performed at an early stage. It is now known that people can inherit the risk of developing colon cancer, but diet is important, too. As noted, there is a very low rate of colon cancer in residents of countries where grains are unprocessed and retain their fiber. It seems that in the Western world, cancer-containing agents (carcinogens) remain in contact with the colon wall for a longer time and in higher concentrations. So, a large bulky stool may act to dilute these carcinogens by moving them through the bowel more quickly. Less carcinogenic exposure to the colon may mean fewer colon polyps and less cancer. A very current review of the entire world?s literature on the effect of fiber on colon polyps and cancer prevention has shown rather clearly that for every 10 grams of fiber added to the diet, there is a 10% reduction in incidence of colon cancer. So the recommended 30 gram fiber diet would result in a 30% less chance of getting these tumors. There are also substances produced in the colon by the good bacteria that seem to retard certain pre-cancer factors from developing. They are called short- chain fatty acids (SCFA). See above for description of SCFAs. A high fiber diet increases these substances. So, the combination of dietary fiber and the production of short-chain fatty acids have a clear health benefit. Fiber and Diverticulosis Prolonged, vigorous contraction of the colon over a long period of time may result in diverticulosis.? This increased pressure causes small and, eventually, larger ballooning pockets to form.? These pockets by themselves cause no proble m.? However, sometimes they become infected (diverticulitis) or even break open (perforate) causing infection or inflammation within the abdomen (peritonitis).? A high fiber diet increases the bulk in the stool and thereby reduces the pressure within the colon.? By so doing, the formation of pockets may be reduced or possibly even stopped. In the past, many physicians were fearful that seeds as in tomatoes, nuts or berries were harmful and could get inside these pockets and rattle around, causing damage. We now know that this has never been the case and that these foods contain lots of fiber and are actually beneficial for diverticulosis patients. Certain bulking agents such as psyllium are traditional types of bulk producing supplements.? Psyllium is a soluble fiber.? Combining it with insoluble fiber as in wheat bran or corn bran (no gluten) can enhance this bulking effect even more.? A product containing a prebiotic, psyllium and wheat bran is probably a very good combination for bowel regularity. Prebiotin https://www.prebiotin.com/ Regularity/Diverticulosis is one such product. Starting a Fiber Supplement ?When consumed at recommended levels,?dietary fiber https://www.[facility].org/healthy-lifestyle/nutrition-an z-lfwqevm-sdovuc/in-depth/fiber/art-95252036?mc_id=&utm_source=[employer]&utm _medium=l&utm_content=content&utm_campaign=[facility]&tasha=[facility]&placementsite =[place]&lcktu=779153 ?is widely recognized to have health benefits, including relief of?constipation https://www.[facility].org/diseases-conditions/constipation/symptoms-causes/[facility]- 61747213?mc_id=us&utm_ source=[employer]&utm_medium=l&utm_content=content&utm_campaign=[employer]&tasha= [facility]&placementsite=[place]&dprui=715562 . Adult women 50 and younger should consume at least 25 grams of fiber a day. Women 51 and older should have at least 21 grams a day. Adult men need at least 38 grams of fiber a day if they are younger than 50 and at least 30 grams of fiber a day if they are 51 and older. Ninety percent of the [place] population consumes far below those recommendations, averaging only 15 grams of daily fiber. Fiber-rich foods include fruits, vegetables, whole grains and legumes. Many cereals, such as bran flakes, are good sources of fiber. Although fiber supplements can fill the daily fiber gap, they usually have only one type of fiber, rather than a variety of fibers and micronutrients, and they may not provide all the health benefits associated with fiber in food. Therefore, boost your fiber intake in your diet first by eating a wide variety of high-fiber foods. If you still can?t get enough fiber to meet the daily recommendation, consider using a supplement. Many fiber supplements can be used regularly bed bug exterminator. Fiber is classified as soluble or insoluble. Soluble fibers are more fermentable and may cause gas. Insoluble fibers move through the digestive system largely intact, and that can increase stool bulk. Most fiber supplements are exclusively soluble or insoluble fiber. For example, FiberCon (calcium polycarbophil) and Benefiber (wheat dextrin) are mainly soluble fiber. They tend to cause more bloating and flatulence. Citrucel (methylcellulose) is mainly insoluble fibers that are nonfermentable, so it?s less likely to contribute to bloating and gas. Psyllium husk (Metamucil and Konsyl) is rich in both soluble and insoluble fiber. Generally, fiber supplements with mainly insoluble fiber may be a better option for constipation. Before taking a fiber supplement, ask your health care provider or pharmacist to review your medications. Fiber supplements can decrease the absorption of certain medications, including drugs that treat thyroid disorders,?depression https://www.[facility].org/diseases-conditions/depression/symp toms-causes/[facility]88698396?mc_id=us&utm_source=[employer]&utm_medium=l&utm_conten t=content&utm_campaign=[facility]&tasha=[facility]&placementsite=[place]&cauid=10 0721 ,?diabetes https://www.[facility].org/diseases-conditions/diabetes/symptoms-causes/[facility] 1444?mc_id=us&utm_source=[employer]&utm_medium=l&utm_content=content&utm_campai =[facility]&tasha=[facility]&placementsite=[place]&mcnfq=771479 ,?high cholesterol https://www.[facility].org/diseases-conditions/ohsk-qqkuk-mnyjxphdlxz/symptoms-c auses/[facility]21260718?mc_id=us&utm_so urce=[employer]&utm_medium=l&utm_content=content&utm_campaign=[facility]&tasha=na tional&placementsite=[place]&wciwi=149905 ,?seizures https://www.[facility].org/dise ases-conditions/seizure/symptoms-causes/syc-51878556?mc_id=us&utm_source=[employer]&utm_medium=l&utm_content=content&utm_campaign=[facility]&tasha=[facility]&place mentsite=[place]&tnghg=760828 ?and various heart ailments. Even common medications such as aspirin, ibuprofen and penicillin can be affected by an increase in fiber. You may take your medications one hour before or two hours af ter eating fiber to minimize the interaction. Some fiber supplements may not be appropriate for people with certain medical conditions. For example, if you have celiac disease, you may need to stay away from fiber products derived from wheat. If you have diabetes, you may need to use a flavorless formula to avoid extra sugar. Consult your health care provider for guidance about the appropriate fiber supplement. Go slow as you begin fiber therapy. Fiber supplements may cause abdominal bloating, cramping and flatulence, especially if you start at a high dose. Begin with a low dose, gradually increasing the amount of fiber. Don?t add more than 50 grams of fiber in a supplement per day, as that may affect how your body absorbs nutrients. Your health care provider can help determine what?s right for you. Drinking plenty of water and exercising regularly can help ease constipation, too. If increasing fiber doesn?t improve your symptoms, see your health care provider. Constipation can be a symptom of various underlying medical disorders, such as pelvic floor muscle dysfunction, slow gastrointestinal motility, anatomical abnormalities or endocrine dysfunction that may require different tr eatment.? Stand Alone Forms: Anesthesia Discharge InstJordyn Win (DSU) Activity:: see above Diet:: see above Discharge Orders Discharge Orders: Discharge Order (Routine); Ordered 03/07/23 Ordered By: Daria Peterson DS: Diagnosis Discharge Diagnosis (1) Alcohol use: Status: Acute (2) Hypertension: Status: Chronic (3) Hypercholesterolemia: Status: Acute (4) Patient speaks only a foreign language: Status: Acute (5) Anemia: Status: Chronic (6) Macrocytic anemia: Status: Acute Asessment and Plan: The patient is seen and examined after their colonoscopy.? The patient has been able to pass gas.? They are not having abdominal pain.? They have been able to tolerate liquids and a snack.? They do not have any nausea or vomiting.? They are not having any chest pain or shortness of breath.??? They are not having any rectal bleeding. Their vital signs have been stable-see nursing notes. We discussed findings during their colonoscopy, and any biopsies that were done/polyps that were removed. The patient will be sent a letter with any biopsy results, and when to repeat the colonoscopy.-see discharge instructions. Patient was given explicit instructions to follow-up regarding colonoscopy-refer to discharge instructions.? We reviewed resumption of medications. Patient verbalized understanding and discharged in stable and satisfactory condition- See nursing notes. (7) Diverticula of colon: Status: Acute (8) History of colon polyps: Status: Acute
--- NOTE | 2023-03-06 20:05 | W.COLOREPORT ---
Date of service: 03/07/23 Time of Service: 10:07 Colonoscopy Report Date of procedure: 03/07/23 Pre-op diagnosis general: macrocytic anemia Post-op diagnosis procedure note: other (Polyps x2 and right-sided diverticula /diverticula ) Surgeon: Daria Peterson Anesthesia Type: General:No Airway Estimated blood loss (mL): 2 Complications: None Disposition: same day Prep: Miralax/Dulcolax Retraction Time: 10 Procedure Description: After informed consent was obtained the patient was taken to the procedure room and placed in a left decubitous position. Monitors were applied and a time out was done. The patients name, date of , procedure, allergies to medications and metal in their body was reviewed. The patient was then sedated. Once sedated and comfortable a rectal exam was done. External exam was normal. Internal exam revealed a normal sphincter tone and no palpable masses. The prostate normal. The scope was then introduced and retrofelexed. Grade internal hemorrhoids were identified x1 column. With without without the scope was then advanced to the cecum difficulty. The TI and appendiceal orifice were identified. The prep was BBPS 3 in all segments for a total of 9. The scope was then slowly retracted over 10 minutes back into the rectum. He has predominantly right-sided diverticula. These are quite large in size. He does have small diverticula within the sigmoid colon. These are quite small. There is no signs of active bleeding or infection. At any he had 2 polyps that we removed. 1 is 0.75 cm pedunculated polyp at 40 cm. This is removed with cold snare. He also has a 5 mm flat polyp in the rectum that is removed with a cold forcep. All specimen is retrieved and no bleeding is noted.. The scope was removed and the patient was woken up and taken back to Same day surgery in stable condition. The patient tolerated the procedure well and there were no immediate complications. Follow up: The patient should follow up in 5-7 years, path pending, unless they develop changes in bowel habits or other new gastrointestinal complaints.
[2023-03-07 08:34] VITALS: BP 172/96; PULSE 87; RESP 16; TEMP 37; O2SAT 99
--- NOTE | 2023-03-07 08:57 | W.ANESPRE ---
General Info Date of Service Date Performed: 03/07/23 Height: 5 ft 7 in Weight: 67.8 kg Body Mass Index (BMI): 23.3 Surgical Procedure: Operation Date: 03/07/23 09:20 Proposed Procedure Side Surgeon marcello Peterson, DO Meds Allergies and Home Medications Allergies Allergy/AdvReac Type Severity Reaction Status Date / Time No Known Allergies Allergy Unverified 03/07/23 08:47 Home Medication Medication Instructions Recorded vitamins A and D3 in cod liver oil 1 ea PO DAILY 11/19/12 1,250 unit-135 unit capsule (cod liver oil) amlodipine 5 mg tablet 5 mg PO DAILY 08/15/22 hydrochlorothiazide 12.5 mg tablet 12.5 mg PO DAILY 08/15/22 lisinopril 30 mg tablet 30 mg PO DAILY 08/15/22 pravastatin 20 mg tablet 20 mg PO DAILY 08/15/22 Current Visit Medications: Current Medications Generic Name Dose Route Start Last Admin Trade Name Freq PRN Reason Stop Dose Admin Hyoscyamine Sulfate 0.125 mg 03/07/23 00:56 Hyoscyamine 0.125 Mg Sl/Oral/Chew SL 04/06/23 00:55 DIRECTED PRN Ringer's Solution 1,000 mls @ 80 mls/hr 03/07/23 06:00 IV 04/05/23 23:59 INFUSION [facility] IV Miscellaneous Supplies 1 each 03/07/23 06:00 Iv Access IV 04/05/23 23:59 DIRECTED STEPHON Ondansetron HCl 4 mg 03/07/23 00:56 Ondansetron 4 Mg/2 Ml Vial IVP 04/06/23 00:55 Q4H PRN PRN Nausea / Vomiting Sodium Chloride 0 ml 03/07/23 06:00 Normal Saline Flush 10 Ml Syr IV 04/05/23 23:59 PRN PRN Sodium Chloride 0 ml 03/07/23 06:00 Normal Saline 10 Ml Vial IJ 04/05/23 23:59 DIRECTED PRN Sterile Water 0 ml 03/07/23 06:00 Water,Injection,Sterile 10 Ml Vial IJ 04/05/23 23:59 DIRECTED PRN PFSH Active Problems Active Problems: Problem Status Onset Code Macrocytic anemia D53.9 Alcohol use Z78.9 Hypertension I10 Hypercholesterolemia E78.00 Patient speaks only a foreign language Z78.9 Anemia D64.9 Tobacco Smoking/Tobacco Use Status: Former Tobacco Use Alcohol Alcohol Intake: current Alcohol intake frequency: 3 or more drinks per day Alcohol type: beer Substance Use Substance use: Never Substance use type: does not use Details: 03/07/23:last drank 3 beers 2 days ago Vital Signs and Lab Results Vital Signs Most Recent Vital Signs in EMR: Most Recent Vital Signs Temp Pulse Resp BP Pulse Ox 37 C 87 16 172/96 H 99 03/07/23 08:34 03/07/23 08:34 03/07/23 08:34 03/07/23 08:34 03/07/23 08:34 Lab Results Blood Type / Crossmatch: No Data to Display Complete Blood Count: No Data to Display Complete Metabolic Panel: No Data to Display Liver Function Panel: No Data to Display Coagulation Panel: No Data to Display Cardiac Panel: No Data to Display Arterial Blood Gas: No Data to Display Venous Blood Gas: No Data to Display Pancreas Panel: No Data to Display Thyroid Panel: No Data to Display Infectious Disease: No Data to Display Blood Cultures: No Data to Display Toxicology Panel: No Data to Display Anesthesia Assessment and Plan Anesthesia History Personal History: No History of Anesthesia Complications Family History: No Family History of Anesthesia Complications Exercise Tolerance Exercise Tolerance: Metabolic Equivalents>4 Cardiac & Pulmonary Exam Cardiac Exam: Normal S1/S2 Heart Sounds Pulmonary Exam: Clear Bilateral Breath Sounds Implantable Cardiac Device Does patient have a Pacemaker or an ICD?: No Airway Exam Known Difficult Airway: No Mallampati Class: 3 Mouth Opening: Narrow (< 3cm) Thyromental Distance: Less than 3 cm Neck Range of Motion: Full ROM Neck Circumference: Normal Teeth Condition: Generalized Poor Dentition Airway Comments: only has a few teeth on the bottom left, denies loose. ASA Classification ASA Score: ASA 2 Emergency Case?: No NPO Status NPO Status: NPO Clears >2 hours, Solids >8 hours Anesthesia Plan Resuscitation Status: Full Code Anesthesia Technique: General Anesthesia Airway Planned: Natural Airway Monitors Used: Standard Monitors Preoperative Comments:: 62 yo male for colo. Sig PMHx: anemia, HTN (HCTZ, lisinopril), former smoker, daily EtOH. Preop and consent done via langue line (name and number written on consent).
[2023-03-07 08:59] VITALS: BMI 23.3
[2023-03-07] MEDS: Lactated Ringers 1,000 ML 80 ML IV (09:02)
--- NOTE | 2023-03-07 09:41 | BOWEL_PTH ---
PATIENT: Jono Morataya LOC: [facility] U#:[id number] AGE/SX: 62/M ROOM: RE03/07/[address]: Daria Peterson : 1960 BED: DIS: 03/07/2023 SPEC #: [id number] RECD: 03/07/23 12:50 STATUS: RUBEN RE #: [id number] JHONY: 03/07/23 09:[address]: Daria Peterson DEPT: Surgical Specimen RECD BY: Priscilla Swanson ENTERED: 03/07/23 12:52 SP TYPE: Bowel OTHR DR: ANIL ROBERSON, UNBUNDLER Tissues: 1 - BIOPSY BOWEL 2 - BIOPSY BOWEL Procedures: GROSS AND MICRO LEVEL 4 Comments: [id number]
[2023-03-07 09:55] VITALS: BP 122/85; PULSE 64; RESP 18; TEMP 36.6; O2SAT 99
--- NOTE | 2023-03-07 10:16 | W.ANESPOSTOP ---
Postoperative Evaluation Date, Time and Location Date Performed: 03/07/23 Time Performed: 10:16 Patient Location: Day Surgery Unit Vital Signs Most Recent Imported Vital Signs: Most Recent Vital Signs Temp Pulse Resp BP Pulse Ox 36.6 C 64 18 122/85 99 03/07/23 09:55 03/07/23 09:55 03/07/23 09:55 03/07/23 09:55 03/07/23 09:55 Pain Score Most Recent Pain Score: Most Recent Pain Score Pain Level 0 03/07/23 09:55 Assessment Mental Status: Awake (Alert & Oriented to Patient Baseline) Airway and Respiratory Function: Patent airway with normal (patient baseline) respiratory exam Cardiovascular Function: Hemodynamically Stable Hydration Status: Adequately Hydrated Nausea & Vomiting: No Nausea or Vomiting Pain: Pt. Denies Any Pain Peripheral Nerve Block: Patient did not receive a nerve block
[2023-03-07 10:43] VITALS: BP 143/72; PULSE 68; RESP 18; TEMP 36.7; O2SAT 100
== END 2023-03-07 11:24 | disposition home or self-care (01) ==
LOC: SUR 08:14
PROVIDERS: PCP Nurse Practitioner Family; Visit Provider Surgery
PROC: 0DJD8ZZ Inspection of Lower Intestinal Tract, Via Natural or Artificial Opening Endoscopic (ICD-10-PCS; CPT 45378; principal; 2023-03-07 09:15)
DX: Z12.11 Encounter for screening for malignant neoplasm of colon (principal); D12.5 Benign neoplasm of sigmoid colon; K57.30 Diverticulosis of large intestine without perforation or abscess without bleeding; I10 Essential (primary) hypertension; Z86.010 Personal history of colon polyps; D12.8 Benign neoplasm of rectum
CPT/HCPCS: 45385; 45380; 88305; J2001

== ENCOUNTER 2024-02-26 21:32 | Outpatient (REF) | payer MEDICAID, SELFPAY ==
[2024-02-26 19:09] LABS: Abs Immature Grans 0.01 10^3/uL (0.0-0.06); Absolute Basophil Count 0.06 10^3/uL (0.0-0.2); Absolute Eosinophil Count 0.12 10^3/uL (0.0-0.7); Absolute Lymphocyte Count 1.41 10^3/uL (1.2-3.4); Absolute Monocyte Count 0.42 10^3/uL (0.1-0.8); Absolute Neutrophil Count 3.41 10^3/uL (1.2-6.7); Basophils % 1.1 %; Eosinophils % 2.2 %; HCT 39.9 % (40.0-50.0); HGB 12.7 g/dL (13.5-17.5); Immature Grans % 0.2 %; MCH 31.8 pg (27.0-33.0); MCHC 31.8 % (32.0-36.0); MCV 100 fL (80-95); MPV 11.1 fL (8.0-11.0); Monocytes % 7.7 %; Neutrophils % 62.8 %; Platelet Count 147 10^3/uL (130-400); RBC 3.99 10^6/uL (4.36-5.78); RDW 12.6 % (11.8-14.1); RDW-SD 45.9 fL; WBC 5.43 10^3/uL (4.4-10.8)
[2024-02-26 19:40] LABS: ALT 28 U/L (16-63); AST 30 U/L (15-37); Albumin 3.7 g/dL (3.4-5.0); Alkaline Phosphatase 80 U/L (46-116); Anion Gap 11.5 mmol/L (3-11); BUN 12 mg/dL (7-18); CO2 26.5 mmol/L (21.0-32.0); Calcium 9.6 mg/dL (8.5-10.1); Calculated LDL 61 mg/dL (<100); Chloride 104 mmol/L (98-107); Cholesterol 145 mg/dL (<200); Estimated GFR 84.05 (mL/min/1.73m2); Glucose 102 mg/dL (74-106); HDL Cholesterol 75 mg/dL (40-60); Potassium 3.8 mmol/L (3.5-5.1); Sodium 142 mmol/L (136-145); Total Protein 8.3 g/dL (6.4-8.2); Triglyceride 45 mg/dL (<150)
[2024-02-27 19:27] LABS: Hepatitis C Ab w Rflx HCV PCR Negative (Negative)
== END 2024-02-26 21:33 | disposition home or self-care (01) ==
LOC: NCHCN 21:32
PROVIDERS: PCP Nurse Practitioner Family; Visit Provider Nurse Practitioner Family
DX: I10 Essential (primary) hypertension (principal); E78.00 Pure hypercholesterolemia, unspecified; Z11.51 Encounter for screening for human papillomavirus (HPV)
CPT/HCPCS: 80053; 80061; 86803; 85025

== ENCOUNTER 2024-04-01 02:17 | Outpatient (CLI) | payer MEDICAID, SELFPAY ==
--- NOTE | 2024-04-01 | DI.CTLCSR_ITS ---
Exam(s) CT CHEST LUNG CANCER SCREEN EXAM: CT CHEST LUNG CANCER SCREEN CLINICAL HISTORY: NICOTINE DEPENDENCE F17.210 TECHNIQUE: Imaging Protocol: Axial computed tomography images with coronal and sagittal reformatted images were created and reviewed. Low dose screening protocol. COMPARISON: US ABDOMEN ULTRASOUND from 09/30/[address] CHEST LUNG CANCER SCREEN from 02/09/2021 FINDINGS: Exam is mildly limited by respiratory motion. Tracheobronchial tree: No bronchiectasis or mucus plugging. Mediastinum and Mayra: No dominant adenopathy or fluid collection. Pulmonary parenchyma: No consolidation or dominant measurable mass. No visible emphysematous changes. No significant interstitial changes. Lung Nodules: Stable 4 millimeter perifissural nodule between left upper and lower lobes. Pleura: No effusion. No pneumothorax. Heart: The heart is not dilated. Minimal coronary artery calcifications are seen. No pericardial effu parveen. Aorta: Thoracic aorta non-dilated. Minimal atherosclerotic changes. Upper abdomen: Unremarkable. Cyst stable liver cyst. No follow-up recommended. Bones: Unremarkable for age. Soft Tissues: Unremarkable. IMPRESSION: No suspicious pulmonary nodules. Lung RADS Cat 1 - Negative: No nodules and definitely benign nodules Lung-RADS 1.0 CATEGORIES: Category 0 - Prior chest CT exam(s) being located for comparison. Category 1 - Annual screening in 12 months. No nodules or definitely benign nodules. Category 2 - Annual screening in 12 months. Benign appearance. Nodules with low likelihood of becomin g active cancer. Category 3 - 6-month follow-up. Probably benign. Short-term follow-up suggested. Nodules with low lik elihood of becoming active cancer. Category 4A - 3-month follow-up and CT/PET if >8 mm in size. Suspicious finding. Findings which requi re additional testing. Category 4B - Findings which require additional testing and tissue sampling. Category 4X - Category 3 or 4 nodules with additional features or imaging findings that increases the suspicion of malignancy. Modifier S- Potentially clinically significant findings (non lung cancer) RADIATION DOSE DELIVERED: !Error Total DLP DATA REPOSITORY: All CT scans at this facility are submitted to the National Radiology Data Registry (NRDR) Dose Index Registry (DIR) with the [employer] ([employer]). RADIATION OPTIMIZATION: All CT scans at this facility use at least one of these dose optimization te chniques: automated exposure control; mA and/or kV adjustment per patient size (includes targeted exa ms where dose is matched to clinical indication); or iterative reconstruction.
== END 2024-04-01 02:37 ==
LOC: DI 02:17
PROVIDERS: PCP Nurse Practitioner Family; Visit Provider Nurse Practitioner Family
DX: Z12.2 Encounter for screening for malignant neoplasm of respiratory organs (principal); F17.210 Nicotine dependence, cigarettes, uncomplicated
CPT/HCPCS: 71271

== ENCOUNTER 2024-09-26 09:59 | Inpatient (IN) | payer MEDICARE, MEDICAID, SELFPAY ==
[2024-09-26] VITALS (30 sets, daily range): BP systolic 91–174; BP diastolic 48–98; PULSE 65–100; RESP 10–23; TEMP 36.8–37.3; O2SAT 93–98
--- NOTE | 2024-09-26 10:00 | RT.EKG_ITS ---
APPROVED REPORT Exam: Resting ECG Reason for Exam: chest pain Patient Location: E HR:85 bpm ECG Measurements Heart Rate 85 AXIS NM 140 P 53 QRSd 85 QRS 58 QT [id number] T 18 QTc 0 Conclusion Sinus rhythm...normal P axis, V-rate 60- 99 No Occlusion TN
[2024-09-26 10:44] LABS: Abs Immature Grans 0.02 10^3/uL (0.0-0.06); Absolute Basophil Count 0.03 10^3/uL (0.0-0.2); Absolute Eosinophil Count 0.11 10^3/uL (0.0-0.7); Absolute Lymphocyte Count 0.75 10^3/uL (1.2-3.4); Absolute Neutrophil Count 4.91 10^3/uL (1.2-6.7); Basophils % 0.5 %; Eosinophils % 1.7 %; HCT 28.3 % (40.0-50.0); HGB 9.4 g/dL (13.5-17.5); Immature Grans % 0.3 %; Lymphocytes % 11.7 %; MCH 31.6 pg (27.0-33.0); MCHC 33.2 % (32.0-36.0); MCV 95 fL (80-95); MPV 9.4 fL (8.0-11.0); Monocytes % 9.3 %; Neutrophils % 76.5 %; Platelet Count 386 10^3/uL (130-400); RBC 2.97 10^6/uL (4.36-5.78); RDW 12.7 % (11.8-14.1); RDW-SD 44.3 fL; WBC 6.42 10^3/uL (4.4-10.8)
[2024-09-26 11:07] LABS: ALT 28 U/L (16-63); AST 30 U/L (15-37); Albumin 3.2 g/dL (3.4-5.0); Alkaline Phosphatase 85 U/L (46-116); Anion Gap 10.6 mmol/L (3-11); BUN 16 mg/dL (7-18); Bilirubin, Total 0.6 mg/dL (0.2-1.0); CO2 25.4 mmol/L (21.0-32.0); CREATININE 1.1 mg/dL (0.70-1.30); Calcium 9.4 mg/dL (8.5-10.1); Chloride 88 mmol/L (98-107); Glucose 128 mg/dL (74-106); Lipase 29 U/L (<78); Potassium 3.9 mmol/L (3.5-5.1); Total Protein 8.1 g/dL (6.4-8.2); Troponin I 6 ng/L (<or=76)
[2024-09-26 11:08] LABS: Sodium 124 mmol/L (136-145)
[2024-09-26] MEDS: Aspirin 81 MG CHEW 324 MG CH (11:13)
[2024-09-26 11:19] LABS: D-Dimer 3751 ng/mlFEU (<500)
--- NOTE | 2024-09-26 11:21 | DI.CT_ITS ---
Exam(s) CT CHEST PE CTA EXAM: CT CHEST PE CTA CLINICAL HISTORY: Positive dimer. TECHNIQUE: Imaging Protocol: CT angiography of the chest was performed using pulmonary embolus los col. Multi planar reconstructions were performed. CONTRAST MATERIAL: Intravenous: Omnipaque 350 Contrast volume: 100 cc COMPARISON: CT CT CHEST LUNG CANCER SCREEN from 04/01/2024 FINDINGS: CHEST: PULMONARY ARTERIES: There are no intraluminal filling defects to suggest acute pulmonary emboli. LUNGS: There is some infiltrate in the right lower lobe posterior basal segment and small bilateral p leural effusions. No findings in the trachea and mainstem bronchi.. MEDIASTINUM: There is no hilar nor mediastinal adenopathy. Visualized thyroid unremarkable. CARDIAC: There is a large pericardial effusion with thickness up to 4 cm. Density of the fluid in th e pericardium is uniform and there are no gas bubbles within this large pericardial effusion. Heart size itself is upper normal. The diameter of the ascending thoracic aorta is normal. There is no ev idence of dissection. There is no significant shift of the interventricular septum. PARTIALLY VISUALIZED UPPERMOST ABDOMEN: Stable cyst in the left hepatic lobe measuring 2.7 cm. No ad renal masses. No splenomegaly. OSSEOUS: No significant osseous lesions.No fractures.. IMPRESSION: 1. The main finding here is a large 4 cm thick pericardial effusion..Heart size itself is upper angel l. Thoracic aorta unremarkable. 2. No evidence of acute pulmonary emboli 3. There is some infiltrate in the right lower lobe posterior basal segment. There are small bilater al pleural effusions. Called by myself to ER physician 09/26/2024 at 1:27 p.m. RADIATION DOSE DELIVERED: 141mGy.cm Total DLP DATA REPOSITORY: All CT scans at this facility are submitted to the National Radiology Data Registry (NRDR) Dose Index Registry (DIR) with the [employer] (ACR). RADIATION OPTIMIZATION: All CT scans at this facility use at least one of these dose optimization te chniques: automated exposure control; mA and/or kV adjustment per patient size (includes targeted exa ms where dose is matched to clinical indication); or iterative reconstruction.
[2024-09-26 11:45] LABS: Bilirubin Negative (Negative); Blood Trace-intact (Negative); Clarity Clear (Clear); Glucose Negative (Negative); Ketones Negative (Negative); Leukocyte Esterase Negative (Negative); Nitrite Negative (Negative); Specific Gravity <= 1.005 (1.005-1.025); Urobilinogen 0.2 mg/dL (Up to 0.2); pH 5.5 (5-8)
[2024-09-26 11:52] LABS: Bacteria Negative HPF (Negative); C & S Indicated? No; Casts Negative LPF (Negative); Crystals Negative HPF (Negative); Epithelial Cells Rare HPF (Negative); Mucus Negative (Negative); RBC 0-2 HPF (0-2); WBC Negative HPF (0-5)
[2024-09-26 11:56] LABS: Sodium, Urine 24 mmol/L
[2024-09-26] MEDS: SODIUM CHLORIDE 3% 150 ML 450 ML IV INF (11:58)
[2024-09-26 12:00] LABS: Creatinine,Urine < 13.0 mg/dL
[2024-09-26 12:06] LABS: Troponin I 6 ng/L (<or=76)
--- NOTE | 2024-09-26 12:15 | ED.GENADUL_ITS ---
Discharge Plan Disposition Patient Disposition: Admit to [facility] Discharge Details Clinical Impression: Acute hyponatremia, Pericardial effusion, Infiltrate of lower lobe of right lung present on imaging study Primary Care Provider: ANIL ROBERSON ED Provider: Yimi Collins [place] Meds and New Rx's Prescriptions: No Action amlodipine 5 mg tablet 5 mg PO DAILY lisinopril 30 mg tablet 30 mg PO DAILY pravastatin 20 mg tablet 20 mg PO DAILY hydrochlorothiazide 12.5 mg tablet 12.5 mg PO DAILY vit A and D3 in cod liver oil [cod liver oil] 1 EACH capsule 1 ea PO DAILY amlodipine 10 mg tablet 10 mg PO DAILY Patient Comments: TAKE 1 TABLET BY MOUTH EVERY DAY DIRECTED FOR BLOOD PRESSURE HPI General Date/Time Provider Initiated Documentation: 09/26/24 10:15 . HPI Narrative: MDM Emergent differential of chest discomfort and dizziness and this well-appearing normothermic and not tachycardic male. Will obtain troponin to assess for ACS the patient has a nonischemic ECG. He has a poor R wave progression. I considered PE and patient is PERC negative so I ordered a D-dimer. D-dimer is elevated so patient will undergo CT angiogram. Patient is neurologically intact aside from some mild confusion according to patient's . Patient not taking any falls to suggest benefit from CT head without cover interpreted will complete CT head to assess for any intracranial hemorrhage. His vital signs are not consistent with withdrawal from alcohol. He has no pain out of proportion to suggest necrotizing soft tissue infection. No dysuria nor frequency to suggest UTI however given language barrier we will obtain urinalysis. Patient was found to be hyponatremic with a serum potassium of 124 which may be secondary to his hydrochlorothiazide. Given his dizziness he is has moderately severe symptoms from his hyponatremia. Will send urine electrolytes and treat with hypertonic saline bolus 3% and 150 cc over 20 minutes. 2:35 PM Patient had a positive D-dimer and underwent CT angiogram to assess for PE. He was found to have a 4 cm pericardial effusion. I completed a bedside ultrasound which revealed a pericardial effusion. He is neither tachycardic nor hypotensive so my suspicion is for tamponade is low. I reached out to [facility] transfer center. His CAT scan was concerning for right lower lobe infiltrate for which I covered him with ceftriaxone. 4:04 PM Patient continues to be asymptomatic. I spoke with KAMAR Platt from the cardiology team at [facility]. She excepted the patient tomorrow on behalf of Dr. Godinez. Will push ultrasound. Will also push ECG. Patient is not anticoagulated to suggest benefit from reversal. He had no trauma and no a nechoic fluid collection to suggest traumatic effusion. Patient has 2 IVs in his antecubital fossa's. He was accepted by Dr. Pop. Chronic conditions affecting the care of the patient: Hypertension hyperlipidemia History obtained from an outside historian: Hypertension hyperlipidemia. Sinus rhythm at a rate of 85. External record review: [facility] EMR Diagnostic interpretations performed by me: Per my independent interpretation EKG shows: Low voltage. No prior for comparison. ]Medications: N/A Social determinants of health affecting disposition: N/A Management discussed with: Cardiology at [facility] Treatment/interventions considered: N/A Response to therapies provided: N/A HPI The patient presents for evaluation of chest discomfort. He is accompanied by an interpreter deaf. He reports experiencing chest discomfort, which he attributes to a recent change in his medication regimen. He was transitioned from lisinopril to amlodipine, a change that has been causing him distress over the past few weeks. He describes symptoms of dizziness, fatigue, and difficulty sleeping. He also reports muscle contractions and spasms. He experiences palpitations and nausea but has not had any episodes of vomiting. He does not have any abdominal pain or shortness of breath. He has no history of thromboembolic events in his lower extremities or pulmonary system. He has not had any recent falls or cardiac issues. He has a mild cough but no sore throat. Exam General: Well-appearing in no acute distress speaking in complete sentences. Head: Normocephalic, atraumatic. Eye: Extraocular eye movements intact. No conjunctival injection. No scleral icterus. Ear, nose, mouth, throat: Grossly normal inspection. Normal voice, handling secretions normally. Neck: Trachea midline. Cardiovascular: Well-perfused distal extremities. Regular rate and rhythm. Diminished heart sounds. Respiratory: Nonlabored respiration.Clear lungs bilaterally. Gastrointestinal: Nondistended abdomen. Soft abdomen. Musculoskeletal: No edema. Moving all 4 extremities spontaneously. Skin: Normal for age and race, grossly normal temperature and turgor. No acute rash. Neurologic: Alert and appropriate, no apparent acute deficits. Cranial nerves II through XII intact grossly. Related Data Home Medications ?Medication ?Instructions ?Recorded ?Confirmed vitamins A and D3 in cod liver oil 1 ea PO DAILY 11/19/12 09/26/24 1,250 unit-135 unit capsule (cod liver oil) amlodipine 5 mg tablet 5 mg PO DAILY 08/15/22 09/26/24 hydrochlorothiazide 12.5 mg tablet 12.5 mg PO DAILY 08/15/22 09/26/24 lisinopril 30 mg tablet 30 mg PO DAILY 08/15/22 09/26/24 pravastatin 20 mg tablet 20 mg PO DAILY 08/15/22 09/26/24 amlodipine 10 mg tablet 10 mg PO DAILY 09/26/24 09/26/24 Allergies Allergy/AdvReac Type Severity Reaction Status Date / Time No Known Allergies Allergy Unverified 09/26/24 10:11 General Stated Complaint: Chest Pain ELBA: 3 Course Vital Signs Vital signs: Vital Signs Temperature 36.9 C 09/26/24 10:07 Pulse 83 09/26/24 10:07 Respiratory Rate 20 09/26/24 10:07 Blood Pressure 131/83 09/26/24 10:07 Pulse Oximetry 98 09/26/24 10:07 Temperature 36.9 C 09/26/24 10:07 Pulse 75 09/26/24 11:15 Pulse 77 09/26/24 11:15 Respiratory Rate 10 L 09/26/24 11:15 Blood Pressure 107/61 09/26/24 11:15 Blood Pressure Mean 74 09/26/24 11:15 Blood Pressure Position Sitting 09/26/24 10:07 Pulse Oximetry 98 09/26/24 10:07 Oxygen Delivery Method Room Air 09/26/24 10:07 Oxygen Flow Rate 0 09/26/24 10:07 Lab/Test Results Lab/Test Results: Laboratory Tests Range/Units 09/26/24 09/26/24 09/26/24 10:32 11:20 11:31 WBC (4.4-10.8) 10^3/uL 6.42 RBC (4.36-5.78) 10^6/uL 2.97 L Hgb (13.5-17.5) g/dL 9.4 L Hct (40.0-50.0) % 28.3 L MCV (80-95) fL 95 MCH (27.0-33.0) pg 31.6 MCHC (32.0-36.0) % 33.2 RDW (11.8-14.1) % 12.7 Plt Count (130-400) 10^3/uL 386 MPV (8.0-11.0) fL 9.4 Immature Gran % % 0.3 Neutrophils % % 76.5 Lymphocytes % % 11.7 Monocytes % % 9.3 Eosinophils % % 1.7 Basophils % % 0.5 Nucleated RBC % (0.0-0.3) % 0.0 Absolute Neutrophils (1.2-6.7) 10^3/uL 4.91 Absolute Lymphocytes (1.2-3.4) 10^3/uL 0.75 L Absolute Monocytes (0.1-0.8) 10^3/uL 0.60 Absolute Eosinophils (0.0-0.7) 10^3/uL 0.11 Absolute Basophils (0.0-0.2) 10^3/uL 0.03 D-Dimer (<500) ng/mlFEU 3751 H Sodium (136-145) mmol/L 124 L* Potassium (3.5-5.1) mmol/L 3.9 Chloride (98-107) mmol/L 88 L Carbon Dioxide (21.0-32.0) mmol/L 25.4 Anion Gap (3-11) mmol/L 10.6 BUN (7-18) mg/dL 16 Creatinine (0.70-1.30) mg/dL 1.1 Est GFR (CKD-EPI 2020) (mL/min/1.73m2) 74.50 Glucose (74-106) mg/dL 128 H Calcium (8.5-10.1) mg/dL 9.4 Magnesium (1.8-2.4) mg/dL 2.0 Total Bilirubin (0.2-1.0) mg/dL 0.6 AST (15-37) U/L 30 ALT (16-63) U/L 28 Alkaline Phosphatase (46-116) U/L 85 Troponin I (<or=76) ng/L 6 6 Total Protein (6.4-8.2) g/dL 8.1 Albumin (3.4-5.0) g/dL 3.2 L Lipase (<78) U/L 29 Urine Color (Yellow) Yellow Urine Clarity (Clear) Clear Urine pH (5-8) 5.5 Ur Specific [place] (1.005-1.025) <= 1.005 Urine Protein (Neg-Trace) mg/dL Negative Urine Ketones (Negative) mg/dL Negative Urine Blood (Negative) Trace-intact H Urine Nitrite (Negative) Negative Urine Bilirubin (Negative) Negative Urine Urobilinogen (Up to 0.2) mg/dL 0.2 Ur Leukocyte Esterase (Negative) Negative Urine RBC (0-2) HPF 0-2 Urine WBC (0-5) HPF Negative Ur Epithelial Cells (Negative) HPF Rare Urine Crystals (Negative) HPF Negative Urine Bacteria (Negative) HPF Negative Urine Casts (Negative) LPF Negative Urine Mucus (Negative) Negative Ur Culture Indicated? No Ur Random Creatinine mg/dL < 13.0 Ur Random Sodium mmol/L 24 Urine Glucose (Negative) mg/dL Negative Medical Decision Making Quality:SDOH Health Related Social Needs: No Data to Display PFSH All Active Problems (Updated 09/26/24 @ 14:34 by Yimi Collins MD) Infiltrate of lower lobe of right lung present on imaging study (Acute) Pericardial effusion (Acute) Acute hyponatremia (Acute) History of colon polyps (Acute ~03/07/23) tubular adenoma 5 yrs R/T size of polyp Diverticula of colon (Acute) Predominantly right-sided Macrocytic anemia (Acute) Alcohol use (Acute) Hypertension (Chronic) Hypercholesterolemia (Acute) Patient speaks only a foreign language (Acute) Anemia (Chronic) Surgical History (Updated 03/08/23 @ 08:03 by Binta Arnold) History of colonoscopy (~03/2023) Biopsies taken Social History Smoking/Tobacco Use Status: Former Tobacco Use tobacco type: cigarettes Smoking risk assessment performed?: Yes Alcohol Intake: current Alcohol Intake frequency: 3 or more drinks per day Alcohol type: beer Drug use: Never Substance use type: does not use Details: 03/07/23:last drank 3 beers 2 days ago Housing: house [facility] Have you Been Recently Intoxicated or Drunk Within the Last 30 days?: No Have you Ever Experienced Previous Episodes of Alcohol Withdrawal?: No Have you ever Experienced Withdrawal Seizures?: No Have you ever Experienced Delirium Tremens(DT)s?: No Have you ever undergone Alcohol Rehabilitation Treatment (i.e, inpt ot outpatient treatment programs)?: No Have you ever Experienced Blackouts?: No Have you ever Combined Alcohol with other Downers within the last 90 days?: No Have you ever Combined Alcohol with any other Substance of Abuse during the last 90 days?: No Positive Blood Alcohol level on Presentation? [PCS.BAL]: No Evidence of Increased Autonomic Activity (i.e. HR>120, tremor, sweating, agitation, nausea)?: No Result: 0 POCUS Exam (ED) Limited Cardiac Exam DATE OF EXAM: 09/26/24 TIME OF EXAM: 14:02 PROVIDER THAT PERFORMED THE STUDY: Yimi Collins IS THIS A REPEAT EXAM DURING THIS ENCOUNTER: no REASON FOR EXAM: Chest pain VISUALIZED STRUCTURES: Four Chambers, Left ventricle and LVOT VIEW OBTAINED: Apical 4-Chamber, Parasternal long-axis and Subxiphoid PERTINENT FINDINGS/IMPRESSION: Pericardial effusion; No RV dilation DIFFERENTIAL DIAGNOSES: Good squeeze, RV less than LV. Large pericardial effusion. Exam complete
--- NOTE | 2024-09-26 12:17 | DI.CT_ITS ---
Exam(s) CT HEAD WO EXAM: CT HEAD WO CLINICAL HISTORY: Confusion. TECHNIQUE: Imaging Protocol: Axial computed tomography images with coronal and sagittal reformatted images were created and reviewed COMPARISON: No exams were available for comparison FINDINGS: There are no skull fractures. There is no fluid in the visualized paranasal sinuses. There is no evidence of intracranial hemorrhage, mass effect, or shift of midline structures. There are no extra-axial fluid collections. The ventricles are not enlarged or shifted and there is no blo od within the ventricular system nor within the basal cisterns. IMPRESSION: No acute intracranial findings on this noninfused CT scan of the brain. RADIATION DOSE DELIVERED: 927.47mGy.cm Total DLP DATA REPOSITORY: All CT scans at this facility are submitted to the National Radiology Data Registry (NRDR) Dose Index Registry (DIR) with the [employer] (ACR). RADIATION OPTIMIZATION: All CT scans at this facility use at least one of these dose optimization te chniques: automated exposure control; mA and/or kV adjustment per patient size (includes targeted exa ms where dose is matched to clinical indication); or iterative reconstruction.
[2024-09-26 12:21] LABS: COVID-19 PCR Negative (Negative); Influenza A PCR Negative (Negative); Influenza B PCR Negative (Negative); RSV PCR Negative (Negative)
[2024-09-26 12:22] LABS: Source Nasopharynx
[2024-09-26] MEDS: Omnipaque 350 MG/ML 100 ML BTL IJ (12:56)
--- NOTE | 2024-09-26 13:30 | DI.US_ITS ---
APPROVED REPORT EXAM: Comprehensive 2D, Doppler, and color-flow Echocardiogram Patient Location: ER Room/Bed: 8 Child Watch Attendant: Ana M Rodriguez RDCS (AE) Indications: Pericardial Effusion Other Information Study Quality: Adequate. Technically limited study due to echo done bedside er supine position. Conclusion Normal left ventricular wall thickness and chamber size. Ejection fraction is 60%. Wall motion is n ormal Normal right ventricular size and function Both atria are normal in size There is no structural or hemodynamically significant valvular disease There is a large circumferential pericardial effusion without echocardiographic findings of tamponade Wall motion Left Ventricle The left ventricle is normal size. The left ventricular systolic function is normal. The left ventric ular ejection fraction is within the normal range. There is normal left ventricular wall thickness. T here is normal LV segmental wall motion. There is no ventricular septal defect visualized. LVEF is 60 %. Right Ventricle The right ventricle is normal size. The right ventricular systolic function is normal. Atria The left atrium size is normal. The right atrium size is normal. The interatrial septum is intact wit h no evidence for an atrial septal defect. Aortic Valve The aortic valve is normal in structure. Aortic valve is trileaflet. There is no aortic valvular sten osis. No aortic regurgitation is present. Mitral Valve The mitral valve is normal in structure. No evidence of mitral valve stenosis. Trace mitral regurgita tion. Tricuspid Valve The tricuspid valve is normal in structure. There is no tricuspid valve stenosis. Trace tricuspid reg urgitation. The RVSP is 38.0mmHg. Pulmonic Valve The pulmonary valve is normal in structure. There is no pulmonic valvular stenosis. There is no pulmo daisy valvular regurgitation. Great Vessels The aortic root is normal in size. The ascending aorta is normal in size. Aortic arch is not well vis ualized. The IVC collapses <50% with inspiration. Pericardium Large circumferential pericardial effusion. 2D Dimensions IVSD d PLAX 0.75 cm M: 0.6-1.2 Ao Root d 3.43 cm M: 3.1 - 3.7 LVPW d PLAX 0.78 cm M: 0.6 - 1.2 Ao Asc Diam d 3.40 cm M: 2.6 - 3.4 LVID d PLAX 4.46 cm M: 4.2 - 5.8 LVDs 3.08 cm M: 2.5 - 4.0 LV EF Teichholz 58.7 % FS 30.91 % LV EDV (Teich) 90.5 mL LV ESV (Teich) 37.4 mL Auto EF LV EDV A4C 97.8 mL LV EDV A2C 125.3 mL LV EDV BP 111.6 mL LV ESV A4C 36.7 mL LV ESV A2C 45.8 mL LV ESV BP 41.8 mL LVEF(%) A4C 62.4 % LVEF(%) A2C 63.5 % LVEF(%) BP 62.5 % LV SV A4C 61.1 ml LV SV A2C 79.6 ml LV SV BP 69.8 ml LV CO A4C 4.9 L/min LV CO A2C 6.2 L/min LV CO BP 5.6 L/min HR A4C 80.36 BPM HR A2C 78.26 BPM LV EDV Index (BP) LA Volume LA Length A4C 6.1 cm LA Length A2C 5.4 cm LA Area A4C s 20.07 cm2 LA Area A2C s 21.64 cm2 LA Vol A4C A-L 55.58 mL LA Vol A2C A-L 73.75 mL LA Vol Biplane A-L 68.4 mL LA Vol/BSA A4C A-L LA Vol/BSA A2C A-L LA Vol/BSA BP A-L 36.2 mL/m2 LA Vol A4C MOD 52.2 mL LA Vol A2C MOD 67.9 mL LA Vol BP MOD 63.5 mL RA Volume RA Area A4C 14.0 cm2 RA ESV A4C (A-L) 32.7mL RA Vol/BSA A4C A-L RA Length A4C 5.1 cm RA ESV A4C (MOD) 31.8mL LV Diastology MV E' medial 0.102 (>0.07 m/s) MV E Vmax 0.94 (0.4-1.3 m/s) MV E/E' MED 9.22 (<14) MV A Vmax 0.90 (0.4-1.3 m/s) MV E' lateral 0.092 (>0.1 m/s) E/A Ratio 1.0 MV E/E' LAT 10.22 (<14) MV E' Average 0.097 m/s MV E/E'(average) 9.70 Aortic Valve AoV Vmax 2.10 m/s LVOT Vmax 1.41 m/s AoV Peak Grad 17.7 mmHg LVOT Peak Grad 8.0 mmHg AoV Area (Vmax) 2.23 cm2 LVOT VTI 0.270 m AoV VTI 0.360 m LVOT Mean Grad 4.4 mmHg AoV Mean Андрей. 1.33 m/s LVOT SV 89.53 mL AoV Mean Grad 8.2 mmHg LVOT Diam s 2.05 cm AoV Area (VTI) 2.49 cm2 AV Regurg Peak Gr. 17.72 mmHg Velocity Ratio 0.67 Mitral Valve MV DT 221 (160-240 msec) MV Vmax TIPS 0.95 m/s MV Mean Grad 1.6 (<2mmHg) MV VTI 0.287 m Pulmonary Valve PV Vmax 1.47 (0.5-1.5 m/s) RVOT Vmax 1.20 m/s PV Peak Grad 8.6 mmHg RVOT Peak Gr. 5.7 mmHg PV Mean Андрей 0.98 m/s RVOT VTI 0.228 m PV Mean Grad 4.4 mmHg RVOT Mean Gr. 3.3 mmHg Tricuspid Valve RA Pressure 8.00 mmHg TR Vmax 2.74 m/s TV S' 0.25 m/s TR Peak Grad 29.9 mmHg RVSP (TR) 38.0 mmHg
[2024-09-26] MEDS: Normal Saline 500 ML 1000 ML IV (14:49)
[2024-09-26] MEDS: cefTRIAXone 2 GM/50 ML BAG IVPB (14:56)
[2024-09-26 17:11] LABS: Anion Gap 8.6 mmol/L (3-11); BUN 12 mg/dL (7-18); CO2 27.4 mmol/L (21.0-32.0); CREATININE 1.1 mg/dL (0.70-1.30); Calcium 9.2 mg/dL (8.5-10.1); Chloride 97 mmol/L (98-107); Glucose 129 mg/dL (74-106); Potassium 4.2 mmol/L (3.5-5.1); Sodium 133 mmol/L (136-145)
[2024-09-26 17:31] LABS: Lab Add On Test DONE
[2024-09-26 17:41] LABS: ETHANOL BLOOD < 3.0 mg/dL (<10)
--- NOTE | 2024-09-26 18:06 | W.PC.ACHO ---
Registration Status: Primary Language: Preferred Language: ED Information & Data Chief Complaint Chest Pain 09/26/24 12:17 Other Complaint SOB 09/26/24 10:07 Triage Note Recent changes to blood 09/26/24 10:07 pressure medications (within 2 weeks). PT reports nausea , dizziness, chest pain, SoB , palpitations since changing meds. (Last Updated 03/08/23 @ 08:03 by Binta Arnold) History of colonoscopy (~03/2023) Most Recent Vital Signs Temperature 36.9 C 09/26/24 10:07 Pulse 66 09/26/24 17:46 Pulse 65 09/26/24 17:46 Respiratory Rate 15 09/26/24 17:46 Blood Pressure 95/55 L 09/26/24 17:46 Blood Pressure Mean 68 09/26/24 17:46 Blood Pressure Position Sitting 09/26/24 10:07 Pulse Oximetry 96 09/26/24 17:46 Oxygen Delivery Method Room Air 09/26/24 10:07 Oxygen Flow Rate 0 09/26/24 10:07 Allergies No Known Allergies Allergy (Unverified 09/26/24 10:11) Active Medications Generic Name Dose Route Start Last Admin Trade Name Gabrielq PRN Reason Stop Dose Admin Iohexol 100 ml 09/26/24 13:00 09/26/24 12:56 Omnipaque 350 Mg/Ml 100 Ml Btl IJ 10/26/24 23:59 70 ml DIRECTED STEPHON Administration IV IV Catheter Type [Left Peripheral IV Antecubital] IV Catheter Type [Right Upper Peripheral IV arm] Diet Orders Category Date Time Status npo [Nothing Per Oral] [DIET] Nutrition 09/26/24 Dinner Active Diagnostics 09/26/24 09/26/24 09/26/24 Range/Units Unknown 16:50 13:16 WBC (4.4-10.8) 10^3/uL RBC (4.36-5.78) 10^6/uL Hgb (13.5-17.5) g/dL Hct (40.0-50.0) % MCV (80-95) fL MCH (27.0-33.0) pg MCHC (32.0-36.0) % RDW (11.8-14.1) % Plt Count (130-400) 10^3/uL MPV (8.0-11.0) fL Immature Gran % % Neutrophils % % Lymphocytes % % Monocytes % % Eosinophils % % Basophils % % Nucleated RBC % (0.0-0.3) % Absolute Neutrophils (1.2-6.7) 10^3/uL Absolute Lymphocytes (1.2-3.4) 10^3/uL Absolute Monocytes (0.1-0.8) 10^3/uL Absolute Eosinophils (0.0-0.7) 10^3/uL Absolute Basophils (0.0-0.2) 10^3/uL D-Dimer (<500) ng/mlFEU Sodium 133 L D (136-145) mmol/L Potassium 4.2 (3.5-5.1) mmol/L Chloride 97 L (98-107) mmol/L Carbon Dioxide 27.4 (21.0-32.0) mmol/L Anion Gap 8.6 (3-11) mmol/L BUN 12 (7-18) mg/dL Creatinine 1.1 (0.70-1.30) mg/dL Est GFR (CKD-EPI 2020) 74.50 (mL/min/1.73m2) Glucose 129 H (74-106) mg/dL Calcium 9.2 (8.5-10.1) mg/dL Magnesium (1.8-2.4) mg/dL Total Bilirubin (0.2-1.0) mg/dL AST (15-37) U/L ALT (16-63) U/L Alkaline Phosphatase (46-116) U/L Troponin I Cancelled (<or=76) ng/L Total Protein (6.4-8.2) g/dL Albumin (3.4-5.0) g/dL Lipase (<78) U/L Urine Color (Yellow) Urine Clarity (Clear) Urine pH (5-8) Ur Specific [place] (1.005-1.025) Urine Protein (Neg-Trace) mg/dL Urine Ketones (Negative) mg/dL Urine Blood (Negative) Urine Nitrite (Negative) Urine Bilirubin (Negative) Urine Urobilinogen (Up to 0.2) mg/dL Ur Leukocyte Esterase (Negative) Urine RBC (0-2) HPF Urine WBC (0-5) HPF Ur Epithelial Cells (Negative) HPF Urine Crystals (Negative) HPF Urine Bacteria (Negative) HPF Urine Casts (Negative) LPF Urine Mucus (Negative) Ur Culture Indicated? Ur Random Creatinine mg/dL Ur Random Sodium mmol/L Urine Glucose (Negative) mg/dL Ethyl Alcohol < 3.0 (<10) mg/dL COVID-19 Source SARS-CoV-2 (PCR) (Negative) Influenza Type A (PCR) (Negative) Influenza Type B (PCR) (Negative) RSV (PCR) (Negative) Add-On Test Request DONE 09/26/24 09/26/24 09/26/24 Range/Units 11:35 11:31 11:20 WBC (4.4-10.8) 10^3/uL RBC (4.36-5.78) 10^6/uL Hgb (13.5-17.5) g/dL Hct (40.0-50.0) % MCV (80-95) fL MCH (27.0-33.0) pg MCHC (32.0-36.0) % RDW (11.8-14.1) % Plt Count (130-400) 10^3/uL MPV (8.0-11.0) fL Immature Gran % % Neutrophils % % Lymphocytes % % Monocytes % % Eosinophils % % Basophils % % Nucleated RBC % (0.0-0.3) % Absolute Neutrophils (1.2-6.7) 10^3/uL Absolute Lymphocytes (1.2-3.4) 10^3/uL Absolute Monocytes (0.1-0.8) 10^3/uL Absolute Eosinophils (0.0-0.7) 10^3/uL Absolute Basophils (0.0-0.2) 10^3/uL D-Dimer (<500) ng/mlFEU Sodium (136-145) mmol/L Potassium (3.5-5.1) mmol/L Chloride (98-107) mmol/L Carbon Dioxide (21.0-32.0) mmol/L Anion Gap (3-11) mmol/L BUN (7-18) mg/dL Creatinine (0.70-1.30) mg/dL Est GFR (CKD-EPI 2020) (mL/min/1.73m2) Glucose (74-106) mg/dL Calcium (8.5-10.1) mg/dL Magnesium (1.8-2.4) mg/dL Total Bilirubin (0.2-1.0) mg/dL AST (15-37) U/L ALT (16-63) U/L Alkaline Phosphatase (46-116) U/L Troponin I 6 (<or=76) ng/L Total Protein (6.4-8.2) g/dL Albumin (3.4-5.0) g/dL Lipase (<78) U/L Urine Color Yellow (Yellow) Urine Clarity Clear (Clear) Urine pH 5.5 (5-8) Ur Specific [place] <= 1.005 (1.005-1.025) Urine Protein Negative (Neg-Trace) mg/dL Urine Ketones Negative (Negative) mg/dL Urine Blood Trace-intact H (Negative) Urine Nitrite Negative (Negative) Urine Bilirubin Negative (Negative) Urine Urobilinogen 0.2 (Up to 0.2) mg/dL Ur Leukocyte Esterase Negative (Negative) Urine RBC 0-2 (0-2) HPF Urine WBC Negative (0-5) HPF Ur Epithelial Cells Rare (Negative) HPF Urine Crystals Negative (Negative) HPF Urine Bacteria Negative (Negative) HPF Urine Casts Negative (Negative) LPF Urine Mucus Negative (Negative) Ur Culture Indicated? No Ur Random Creatinine < 13.0 mg/dL Ur Random Sodium 24 mmol/L Urine Glucose Negative (Negative) mg/dL Ethyl Alcohol (<10) mg/dL COVID-19 Source Nasopharynx SARS-CoV-2 (PCR) Negative (Negative) Influenza Type A (PCR) Negative (Negative) Influenza Type B (PCR) Negative (Negative) RSV (PCR) Negative (Negative) Add-On Test Request 09/26/24 Range/Units 10:32 WBC 6.42 (4.4-10.8) 10^3/uL RBC 2.97 L (4.36-5.78) 10^6/uL Hgb 9.4 L (13.5-17.5) g/dL Hct 28.3 L (40.0-50.0) % MCV 95 (80-95) fL MCH 31.6 (27.0-33.0) pg MCHC 33.2 (32.0-36.0) % RDW 12.7 (11.8-14.1) % Plt Count 386 (130-400) 10^3/uL MPV 9.4 (8.0-11.0) fL Immature Gran % 0.3 % Neutrophils % 76.5 % Lymphocytes % 11.7 % Monocytes % 9.3 % Eosinophils % 1.7 % Basophils % 0.5 % Nucleated RBC % 0.0 (0.0-0.3) % Absolute Neutrophils 4.91 (1.2-6.7) 10^3/uL Absolute Lymphocytes 0.75 L (1.2-3.4) 10^3/uL Absolute Monocytes 0.60 (0.1-0.8) 10^3/uL Absolute Eosinophils 0.11 (0.0-0.7) 10^3/uL Absolute Basophils 0.03 (0.0-0.2) 10^3/uL D-Dimer 3751 H (<500) ng/mlFEU Sodium 124 L* (136-145) mmol/L Potassium 3.9 (3.5-5.1) mmol/L Chloride 88 L (98-107) mmol/L Carbon Dioxide 25.4 (21.0-32.0) mmol/L Anion Gap 10.6 (3-11) mmol/L BUN 16 (7-18) mg/dL Creatinine 1.1 (0.70-1.30) mg/dL Est GFR (CKD-EPI 2020) 74.50 (mL/min/1.73m2) Glucose 128 H (74-106) mg/dL Calcium 9.4 (8.5-10.1) mg/dL Magnesium 2.0 (1.8-2.4) mg/dL Total Bilirubin 0.6 (0.2-1.0) mg/dL AST 30 (15-37) U/L ALT 28 (16-63) U/L Alkaline Phosphatase 85 (46-116) U/L Troponin I 6 (<or=76) ng/L Total Protein 8.1 (6.4-8.2) g/dL Albumin 3.2 L (3.4-5.0) g/dL Lipase 29 (<78) U/L Urine Color (Yellow) Urine Clarity (Clear) Urine pH (5-8) Ur Specific [place] (1.005-1.025) Urine Protein (Neg-Trace) mg/dL Urine Ketones (Negative) mg/dL Urine Blood (Negative) Urine Nitrite (Negative) Urine Bilirubin (Negative) Urine Urobilinogen (Up to 0.2) mg/dL Ur Leukocyte Esterase (Negative) Urine RBC (0-2) HPF Urine WBC (0-5) HPF Ur Epithelial Cells (Negative) HPF Urine Crystals (Negative) HPF Urine Bacteria (Negative) HPF Urine Casts (Negative) LPF Urine Mucus (Negative) Ur Culture Indicated? Ur Random Creatinine mg/dL Ur Random Sodium mmol/L Urine Glucose (Negative) mg/dL Ethyl Alcohol (<10) mg/dL COVID-19 Source SARS-CoV-2 (PCR) (Negative) Influenza Type A (PCR) (Negative) Influenza Type B (PCR) (Negative) RSV (PCR) (Negative) Add-On Test Request Intake and Output - 24 Hour Total 09/26/24 09:59 thru 09/26/24 17:24 Intake Total 500 Balance 500 Weight 72.575 kg Intake: IV 500 Falls Risk Assessment History of Falls No History 09/26/24 10:10 Contributing Factors No Factors 09/26/24 10:10 Ambulatory Aids Independent 09/26/24 10:10 Tubes/Lines None 09/26/24 10:10 Gait Evaluation No gait disturbance 09/26/24 10:10 Cognition No cognitive impairment 09/26/24 10:10 Fall Total Score 0 09/26/24 10:10 Level of Risk Standard/Low Risk 09/26/24 10:10 Problems (Last Reviewed 03/06/23 @ 19:49 by Daria Peterson DO) Infiltrate of lower lobe of right lung present on imaging study (Acute) Pericardial effusion (Acute) Acute hyponatremia (Acute) v v v v v v v v v Sending and/or Receiving Nurses: Please use comment section below to note any information pertinent to the patient hand-off not included above. Information / Comments: Paged at [phone], called for report at [phone]. Bilateral AC 18 G, no running fluids. Report received from: Hugo Noel RN
--- NOTE | 2024-09-26 18:26 | W.PM.HP.N ---
Date of service: 09/26/24 Time of Service: 18:26 Assessment and Plan Assessment and plan (1) Pericardial effusion: Status: Acute Assessment and plan: Large pleural effusion without tamponade on exam or on echocardiogram. Given the size, he should have diagnostic pericardiocentesis. [facility] contacted, he is accepted cardiology service per Tesha Mcknight APRN under service of Dr. Victor. The etiology is less clear. He does have an infiltrate and had some respiratory and GI symptoms in the past week. Viral swabs are negative. This is not c/w active TB. He did just restart on multiple medications, olmestartan is new so will hold that Tick season, get lyme screen A/w anemia, but no signs of CT disease like lupus. Get CRP. This does raise concern for malignancy as well. Was in [place] but no recent viral illness. Father had liver cancer and [place], get hep B screen as none on record (2) Hypertension: Status: Chronic Assessment and plan: BP okay now. Stopping olmesartan as above. REsume lisinopril at lower dose with amlodipine and HCTZ as he has been on these. (3) Community acquired pneumonia: Status: Acute Assessment and plan: On CT. Continue ceftriaxone and doxycycline. The infiltrate and effusion may be inflammatory however. (4) Alcohol use: Status: Acute Assessment and plan: Discussed his use is at a risky level. No h/o withdrawal with not drinking, but will monitor and start CIWA if any concerns. (5) Acute hyponatremia: Status: Acute Assessment and plan: In setting of heavy beer drinkign and water consumption. Rapidly corrected in ED, stopping NS and use 1/2NS while NPO. Follow (6) Anemia: Status: Chronic Assessment and plan: Check iron and B12. He did have colonscopy but may need upper and lower again. (7) DVT prophylaxis: Status: Acute Assessment and plan: mechanical pending possible procedure History of Present Illness History of Present Illness Chief Complaint: lightheaded Narrative: 64 yo M with history of daily beer drinking and poorly controlled hypertension presenting with one day of nausea, dizziness, and shortness of breath. He states he felt well before yesterday, though he did complain of dizziness at his PCP visit 09/24. He has no chest pain. His SOB has been with exertion but he is still walking around, denies shortness of breath at rest now. No orthopnea or PND. He has not had fevers or chills. No current cough or URI symptoms. He has not vomited, nausea is not bothering him now. No vertigo, no headache, no focal numbness or weakness or loss of coordination. Dizziness is more lightheadedness. Of note, per the PCP note and confirmed by the patient and , he had been off several of his BP medications. He was only taking amlodipine at 09/24 visit, was restarted on olmestartan 40mg and HCTZ 12.5mg. He still had lisinopril 30mg in his bag. He takes fish oil capsules but denies taking other non-prescription medications or supplements. Regarding alcohol, he drinks 4-5 bud light a day. He has never had withdrawal. He only had 2 yesterday and none today because he wasn't feeling good. He works at [employer] in [employer]. No recent change in diet. He does drink more than 8 cups water/day. He recently returned from spending 6 weeks in [facility]) with family, returned in early August. He denied sick exposures on that trip. He did have some runny nose, cough, and itchy eyes last week, he attributed this to allergies. He also had 1-2 days of loose stools. He denies history of TB or exposure to TB. Interview done with [employer] bilingual interpreter service on tablet. Review of Systems All systems reviewed & are unremarkable except as noted in HPI and below Constitutional Constitutional: Denies chills, Denies fever(s), Denies night sweats, Denies weight gain and Denies weight loss Respiratory Respiratory: Denies cough, Denies hemoptysis and Denies excessive phlegm production Musculoskeletal Musculoskeletal: Denies arthralgias and Denies joint swelling Comments: no tick bites Integumentary/Breasts Skin/Breast: Denies new lesions and Denies rash PFSH All Active Problems (Updated 09/26/24 @ 18:52 by Yimi Pop) DVT prophylaxis (Acute) Community acquired pneumonia (Acute) Infiltrate of lower lobe of right lung present on imaging study (Acute) Pericardial effusion (Acute) Acute hyponatremia (Acute) History of colon polyps (Acute ~03/07/23) tubular adenoma 5 yrs R/T size of polyp Diverticula of colon (Acute) Predominantly right-sided Macrocytic anemia (Acute) Alcohol use (Acute) Hypertension (Chronic) Hypercholesterolemia (Acute) Patient speaks only a foreign language (Acute) Anemia (Chronic) Surgical History History of colonoscopy (~03/2023) Biopsies taken Family History (Updated 09/26/24 @ 18:40 by Yimi Pop) Father Cancer Liver Social History (Updated 09/26/24 @ 18:42 by Yimi Pop) Smoking/Tobacco Use Status: Former Tobacco Use tobacco type: cigarettes Quit Date: 05/01/19 Smoking risk assessment performed?: Yes Alcohol Intake: current Alcohol Intake frequency: 3 or more drinks per day Alcohol type: beer Drug use: Never Substance use type: does not use Details: 03/07/23:last drank 3 beers 2 days ago Housing: house Additional Social history: [place] in [place] with . Immigrated from [place] in 1980s. Works as [employer] Allergies and Home Medications Allergies Allergy/AdvReac Type Severity Reaction Status Date / Time No Known Allergies Allergy Unverified 09/26/24 10:11 Home Medications ?Medication ?Instructions ?Recorded ?Confirmed ?Type vitamins A and D3 in cod liver oil 1 ea PO DAILY 11/19/12 09/26/24 History 1,250 unit-135 unit capsule (cod liver oil) amlodipine 5 mg tablet 5 mg PO DAILY 08/15/22 09/26/24 History hydrochlorothiazide 12.5 mg tablet 12.5 mg PO DAILY 08/15/22 09/26/24 History lisinopril 30 mg tablet 30 mg PO DAILY 08/15/22 09/26/24 History pravastatin 20 mg tablet 20 mg PO DAILY 08/15/22 09/26/24 History amlodipine 10 mg tablet 10 mg PO DAILY 09/26/24 09/26/24 History Exam Narrative Exam Narrative: GEN: Alert and oriented x 4, pleasant and cooperative, gives linear though terse history via bilingual interpreter. corrects him a times. No acute distress at rest. HEENT: Head atraumatic. Conjunctiva clear, no icterus. PEERL, EOMI. no rhinorrhea. MMM, OP benign. Frequently moving jaw adjusting ill-fitting lower denture. Neck is supple with no masses or lymphadenopathy, trachea midline LUNGS: CTAB with normal effort CV: RRR with no murmurs, gallops, or rubs. carotid pulses 2+ johnson. No elevation JVP ABD: active bowel sounds, soft, nontender and nondistended. No masses. EXT: no cyanosis, clubbing, or edema MSK: No joint redness or swelling NEURO: CN 2-12 grossly intact. Normal movement of 4 extremities. Normal FNF. Normal speech and coordination. No tremor SKIN: No rashes or open wounds. PSYCH: normal mood and affect Results Imaging CT scan - chest: report reviewed (1. The main finding here is a large 4 cm thick pericardial effusion..Heart size itself is upper normal. Thoracic aorta unremarkable. 2. No evidence of acute pulmonary emboli 3. There is some infiltrate in the right lower lobe posterior basal segment. There are small bilateral pleural effusions.) EKG: report reviewed and image reviewed Imaging Studies: ECHO: Normal left ventricular wall thickness and chamber size. Ejection fraction is 60%. Wall motion is normal Normal right ventricular size and function Both atria are normal in size There is no structural or hemodynamically significant valvular disease There is a large circumferential pericardial effusion without echocardiographic findings of tamponade CT Head: No acute intracranial findings on this noninfused CT scan of the brain. Labs 09/26/24 10:32 09/26/24 16:50 Labs: Laboratory Results - last 24 hr 09/26/24 09/26/24 09/26/24 10:32 11:20 11:31 WBC 6.42 RBC 2.97 L Hgb 9.4 L Hct 28.3 L MCV 95 MCH 31.6 MCHC 33.2 RDW 12.7 Plt Count 386 MPV 9.4 Immature Gran % 0.3 Neutrophils % 76.5 Lymphocytes % 11.7 Monocytes % 9.3 Eosinophils % 1.7 Basophils % 0.5 Nucleated RBC % 0.0 Absolute Neutrophils 4.91 Absolute Lymphocytes 0.75 L Absolute Monocytes 0.60 Absolute Eosinophils 0.11 Absolute Basophils 0.03 D-Dimer 3751 H Sodium 124 L* Potassium 3.9 Chloride 88 L Carbon Dioxide 25.4 Anion Gap 10.6 BUN 16 Creatinine 1.1 Est GFR (CKD-EPI 2020) 74.50 Glucose 128 H Calcium 9.4 Magnesium 2.0 Total Bilirubin 0.6 AST 30 ALT 28 Alkaline Phosphatase 85 Troponin I 6 6 Total Protein 8.1 Albumin 3.2 L Lipase 29 Urine Color Yellow Urine Clarity Clear Urine pH 5.5 Ur Specific [place] <= 1.005 Urine Protein Negative Urine Ketones Negative Urine Blood Trace-intact H Urine Nitrite Negative Urine Bilirubin Negative Urine Urobilinogen 0.2 Ur Leukocyte Esterase Negative Urine RBC 0-2 Urine WBC Negative Ur Epithelial Cells Rare Urine Crystals Negative Urine Bacteria Negative Urine Casts Negative Urine Mucus Negative Ur Culture Indicated? No Ur Random Creatinine < 13.0 Ur Random Sodium 24 Urine Glucose Negative Ethyl Alcohol COVID-19 Source SARS-CoV-2 (PCR) Influenza Type A (PCR) Influenza Type B (PCR) RSV (PCR) Add-On Test Request 09/26/24 09/26/24 09/26/24 11:35 13:16 16:50 WBC RBC Hgb Hct MCV MCH MCHC RDW Plt Count MPV Immature Gran % Neutrophils % Lymphocytes % Monocytes % Eosinophils % Basophils % Nucleated RBC % Absolute Neutrophils Absolute Lymphocytes Absolute Monocytes Absolute Eosinophils Absolute Basophils D-Dimer Sodium 133 L D Potassium 4.2 Chloride 97 L Carbon Dioxide 27.4 Anion Gap 8.6 BUN 12 Creatinine 1.1 Est GFR (CKD-EPI 2020) 74.50 Glucose 129 H Calcium 9.2 Magnesium Total Bilirubin AST ALT Alkaline Phosphatase Troponin I Cancelled Total Protein Albumin Lipase Urine Color Urine Clarity Urine pH Ur Specific [place] Urine Protein Urine Ketones Urine Blood Urine Nitrite Urine Bilirubin Urine Urobilinogen Ur Leukocyte Esterase Urine RBC Urine WBC Ur Epithelial Cells Urine Crystals Urine Bacteria Urine Casts Urine Mucus Ur Culture Indicated? Ur Random Creatinine Ur Random Sodium Urine Glucose Ethyl Alcohol < 3.0 COVID-19 Source Nasopharynx SARS-CoV-2 (PCR) Negative Influenza Type A (PCR) Negative Influenza Type B (PCR) Negative RSV (PCR) Negative Add-On Test Request 09/26/24 Unknown WBC RBC Hgb Hct MCV MCH MCHC RDW Plt Count MPV Immature Gran % Neutrophils % Lymphocytes % Monocytes % Eosinophils % Basophils % Nucleated RBC % Absolute Neutrophils Absolute Lymphocytes Absolute Monocytes Absolute Eosinophils Absolute Basophils D-Dimer Sodium Potassium Chloride Carbon Dioxide Anion Gap BUN Creatinine Est GFR (CKD-EPI 2020) Glucose Calcium Magnesium Total Bilirubin AST ALT Alkaline Phosphatase Troponin I Total Protein Albumin Lipase Urine Color Urine Clarity Urine pH Ur Specific [place] Urine Protein Urine Ketones Urine Blood Urine Nitrite Urine Bilirubin Urine Urobilinogen Ur Leukocyte Esterase Urine RBC Urine WBC Ur Epithelial Cells Urine Crystals Urine Bacteria Urine Casts Urine Mucus Ur Culture Indicated? Ur Random Creatinine Ur Random Sodium Urine Glucose Ethyl Alcohol COVID-19 Source SARS-CoV-2 (PCR) Influenza Type A (PCR) Influenza Type B (PCR) RSV (PCR) Add-On Test Request DONE Last Vital Signs Temp 36.9 C 09/26/24 10:07 Pulse 66 09/26/24 17:46 Resp 15 09/26/24 17:46 BP 95/55 L 09/26/24 17:46 Pulse Ox 96 09/26/24 17:46 PAWSS Have you Been Recently Intoxicated or Drunk Within the Last 30 days?: No Have you Ever Experienced Previous Episodes of Alcohol Withdrawal?: No Have you ever Experienced Withdrawal Seizures?: No Have you ever Experienced Delirium Tremens(DT)s?: No Have you ever undergone Alcohol Rehabilitation Treatment (i.e, inpt ot outpatient treatment programs)?: No Have you ever Experienced Blackouts?: No Have you ever Combined Alcohol with other Downers within the last 90 days?: No Have you ever Combined Alcohol with any other Substance of Abuse during the last 90 days?: No Positive Blood Alcohol level on Presentation? [PCS.BAL]: No Evidence of Increased Autonomic Activity (i.e. HR>120, tremor, sweating, agitation, nausea)?: No Result: 0 Time Spent Time spent with Patient: >75 minutes Time was spent: preparing to see the patient(eg.review tests), obtaining and/or reviewing separately otained hiistory, ordering medications,tests, procedures, referring, communicating with other health home care music therapist, indepentently interpreting results, counseling the patient and care coordination
[2024-09-26] MEDS: POTASSIUM CHLORIDE/D5-0.45NACL 1,000 ML 100 MEQ IV (20:15)
[2024-09-26] MEDS: DOXYCYCLINE 100 MG in Normal Saline 100 ML IVPB (20:15)
[2024-09-26] MEDS: Pravastatin 20 MG TAB PO (22:49)
[2024-09-27 04:12] VITALS: BP 100/64; PULSE 76; RESP 20; TEMP 37.3; O2SAT 96
[2024-09-27] MEDS: POTASSIUM CHLORIDE/D5-0.45NACL 1,000 ML 100 MEQ IV (06:00)
[2024-09-27 07:33] VITALS: BP 110/69; PULSE 71; RESP 16; TEMP 37; O2SAT 92
[2024-09-27] MEDS: amLODIPine 10 MG TAB PO (08:09)
[2024-09-27] MEDS: hydroCHLOROthiazide 12.5 MG TAB PO (08:09)
[2024-09-27] MEDS: Lisinopril 10 MG TAB 30 MG PO (08:09)
[2024-09-27 08:13] LABS: Abs Immature Grans 0.01 10^3/uL (0.0-0.06); Absolute Basophil Count 0.05 10^3/uL (0.0-0.2); Absolute Eosinophil Count 0.22 10^3/uL (0.0-0.7); Absolute Lymphocyte Count 1.07 10^3/uL (1.2-3.4); Absolute Monocyte Count 0.71 10^3/uL (0.1-0.8); Eosinophils % 4.3 %; HGB 8.5 g/dL (13.5-17.5); Immature Grans % 0.2 %; Lymphocytes % 20.7 %; MCH 32.1 pg (27.0-33.0); MCHC 32.7 % (32.0-36.0); MCV 98 fL (80-95); MPV 9.5 fL (8.0-11.0); Monocytes % 13.8 %; Platelet Count 379 10^3/uL (130-400); RBC 2.65 10^6/uL (4.36-5.78); RDW 12.8 % (11.8-14.1); RDW-SD 46.2 fL; WBC 5.16 10^3/uL (4.4-10.8)
[2024-09-27 08:34] LABS: Iron 26 ug/dL (65-175); Total Iron Binding Capacity 222 ug/dL (250-450); Transferrin Sat 12 % (20-55)
[2024-09-27 08:44] LABS: Anion Gap 5.1 mmol/L (3-11); BUN 8 mg/dL (7-18); CO2 27.9 mmol/L (21.0-32.0); Chloride 103 mmol/L (98-107); Estimated GFR 83.52 (mL/min/1.73m2); Ferritin 418 ng/mL (26-388); Glucose 134 mg/dL (74-106); Potassium 4.2 mmol/L (3.5-5.1); Sodium 136 mmol/L (136-145); TSH (W/Ref FT4) 2.18 uIU/mL (0.36-3.74)
[2024-09-27 08:56] LABS: Vitamin B12 > 2000 pg/mL (193-986)
[2024-09-27 08:58] LABS: C-Reactive Protein 6.36 mg/dL (<or=0.5)
[2024-09-27] MEDS: DOXYCYCLINE 100 MG in Normal Saline 100 ML IVPB ×2 (10:50→22:10)
[2024-09-27 11:21] VITALS: BP 122/81; PULSE 74; RESP 16; TEMP 36.8; O2SAT 95
--- NOTE | 2024-09-27 12:37 | PDOC.CMIN ---
Date of service: 09/27/24 Time of Service: 12:37 Care Management Initial Assmt Initial Assessment Reason for Hospitalization: pericardial effusion, hyponatremia Functional Status/Living Situation Patient Presentation: Jono, who goes by Curry, was sitting up in his chair visiting with his when CM met with him. Curry speaks minimal Tuvaluan (his primary language is Cantonese), therefore CM utilized the warehouse logistics coordinator tablet to discuss his plan of care. Curry stated that he and his live in [place], and have four children. 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 He reported that he is independent at baseline. He stated that per MD, he will transfer to [facility] for further care, and he is happy with this plan. Per RN, he was able to eat this afternoon, as there is still no time for transfer, and [facility] until tomorrow. CM will continue to follow. Town of Residence: [place] Resides with: Spouse Significant Other/Family: Local Natural Supports: , Deidre daughterShawn Employment Status: Employed Instrumental Activities of Daily Living (ADLs): Independent Medications Medication Management: No Issues/Barriers identified Physical Functioning/Mobility Assistive Device: none Advance Directives Advance Directives: Do you have an Advance Directive: N 09/03/14 12:17 AD On File at [facility]: N 11/19/12 15:54 Date Asked 09/26/24 09/26/24 10:07 AD Date Reviewed COLST On File at [facility] COLST Date Scanned Code Status Resuscitation Status Full Code Insurance Coverage/Financial Issues Insurance: [facility] Care Team Visit Care Team Role Provider Type ANIL ROBERSON NP Primary Care Provider NON-[facility] STAFF PHYSICIAN Yimi Collins MD Emergency Provider [facility] STAFF PHYSICIAN Yimi Pop Admit Provider [facility] STAFF PHYSICIAN Attending Provider Discharge Potential Discharge Needs: Other (transfer to tertiary facility) Anticipated Barriers to Discharge: Bed availability Patient/Family Education Needs: Review discharge instructions, discuss Ask Me Three Transportation: EMS Plan: Curry has been accepted for transfer to [facility]; he will transfer once a bed becomes available. He will transport via EMS, coordinated by RN tile and mottle supervisor. He will follow up with his PCP and discharge plan of care. CM will continue to follow. Social Determinants of Health Screening Social Determinants of health last assessed in clinic: 09/27/24 Will the Patient Participate in the Screening?: Yes Do you worry about having a steady place to live?: no Problems where you live: no known problems In the past 12 months, have you had to go without electric, gas, oil or water in your home?: no 1. Within the past 12 months, we worried whether our food would run out before we got money to buy more.: Don't know/refused 2. Within the past 12 months, the food we bought just didn't last and we didn't have money to get more.: Don't know/refused Has lack of transportation kept you from medical appointments or from doing things needed for daily living?: no Has anyone in your life made you feel unsafe or unsupported?: no How hard is it for you to pay for the very basics like food, housing, medical care, and heating? Would you say it is:: Not hard at all Do you want help finding or keeping work or a job?: I do not need or want help If for any reason you need help with day-to-day activities such as bathing, preparing meals, shopping, managing finances, etc., do you get the help you need?: I don?t need any help How often do you feel lonely or isolated from those around you?: Never Do you speak a language other than Tuvaluan at home?: No Does the patient want assistance with any of the above?: No PFSH All Active Problems (Updated 09/26/24 @ 18:52 by Yimi Pop) DVT prophylaxis (Acute) Community acquired pneumonia (Acute) Infiltrate of lower lobe of right lung present on imaging study (Acute) Pericardial effusion (Acute) Acute hyponatremia (Acute) History of colon polyps (Acute ~03/07/23) tubular adenoma 5 yrs R/T size of polyp Diverticula of colon (Acute) Predominantly right-sided Macrocytic anemia (Acute) Alcohol use (Acute) Hypertension (Chronic) Hypercholesterolemia (Acute) Patient speaks only a foreign language (Acute) Anemia (Chronic) Surgical History History of colonoscopy (~03/2023) Biopsies taken Family History (Updated 09/26/24 @ 18:40 by Yimi Pop) Father Cancer Liver Social History (Updated 09/26/24 @ 18:42 by Yimi Pop) Smoking/Tobacco Use Status: Former Tobacco Use tobacco type: cigarettes Quit Date: 05/01/19 Smoking risk assessment performed?: Yes Alcohol Intake: current Alcohol Intake frequency: 3 or more drinks per day Alcohol type: beer Drug use: Never Substance use type: does not use Details: 03/07/23:last drank 3 beers 2 days ago Housing: [place] Additional Social history: LIves in [place] with . Immigrated from [place] in 1980s. Works as [employer]
--- NOTE | 2024-09-27 14:25 | CHAPLAIN ---
I had a brief visit with Curry today. His was with him and she engaged in a short conversation. Cantonese if her first language. I explained my role and offered support.
[2024-09-27] MEDS: cefTRIAXone 2 GM/50 ML BAG IVPB (14:51)
[2024-09-27] MEDS: Normal Saline Flush 10 ML SYR IVP (14:52)
--- NOTE | 2024-09-27 14:52 | PHA.REVIEW2 ---
Pharmacy Admission Review Admission Clinical Review Admission Pharmacy Review: DVT prophylaxis (Acute) Community acquired pneumonia (Acute) Infiltrate of lower lobe of right lung present on imaging study (Acute) Pericardial effusion (Acute) Acute hyponatremia (Acute) Alcohol use (Acute) No Known Allergies Allergy (Unverified 09/26/24 10:11) Resuscitation Status Full Code Height 5 ft 7 in Weight 156 kg Pharmacy Admission Review Renal Dosing Renal Dosing: BUN 8 mg/dL (7-18) 09/27/24 07:25 Creatinine 1.0 mg/dL (0.70-1.30) 09/27/24 07:25 Medications needing adjustments: Reviewed Anticoagulation Anticoagulation: Hgb 8.5 g/dL (13.5-17.5) L 09/27/24 07:25 Hct 26.0 % (40.0-50.0) L 09/27/24 07:25 Plt Count 379 10^3/uL (130-400) 09/27/24 07:25 Creatinine 1.0 mg/dL (0.70-1.30) 09/27/24 07:25 DVT Prophylaxis: Reviewed (ordered SCDs) Opiate Usage Evaluate Pain Scale/Pains Meds: N/A Relevant Labs Relevant Labs: Sodium 136 mmol/L (136-145) 09/27/24 07:25 Potassium 4.2 mmol/L (3.5-5.1) 09/27/24 07:25 Chloride 103 mmol/L (98-107) 09/27/24 07:25 Magnesium 2.0 mg/dL (1.8-2.4) 09/26/24 10:32 C-Reactive Protein 6.36 mg/dL (<or=0.5) H 09/27/24 07:25 Electrolytes, C-Reactive P, ESR: Reviewed DM Control DM Control: N/A Cardiac Review Cardiac Review: Troponin I Cancelled 09/26/24 13:16 BP, HR, EF%: Reviewed QTc Review QTc: N/A IV to PO Switch IV Medications: Reviewed Home Meds Home Med List reviewed: Reviewed Relevent Home Meds Not ordered & why?: olmesartan held because it was a new med added on; resumed lisinopril at lower dose in place of it. Current Meds Current Medication Order Review: Reviewed Pharmacy Antibiotic Review Relevant Labs: Relevant Labs 09/27/24 07:25 C-Reactive Protein 6.36 H Pharmacy Antibiotic Activity: Abx regimen adjustment (abx d'cd. ) SOAP SOAP: pt being transferred [place] [facility]
[2024-09-27 15:08] VITALS: BP 132/81; PULSE 80; RESP 17; TEMP 37.2; O2SAT 95
[2024-09-27 18:31] VITALS: BP 123/67; PULSE 81; RESP 17; TEMP 36.9; O2SAT 96
--- NOTE | 2024-09-27 20:24 | DSE_ITS ---
Date of service: 09/27/24 Time of Service: 20:25 DS: Diagnosis Discharge Diagnosis (1) Pericardial effusion: Status: Acute (2) Hypertension: Status: Chronic (3) Community acquired pneumonia: Status: Acute (4) Alcohol use: Status: Acute (5) Acute hyponatremia: Status: Acute (6) Anemia: Status: Chronic (7) DVT prophylaxis: Status: Acute Discharge Plan Disposition Patient Disposition: Transfer-Acute Inpatient Care Specific Acute Inpt Facility: [facility] Condition: Stable Discharge Details Reason For Visit: Pericardial Effusion, Hyponatremia Admit Date/Time: 09/26/24 17:17 Admit Provider: Yimi Pop Attending Provider: Yimi Pop Primary Care Provider: ANIL ROBERSON Hospital Course Hospital Course: 64 yo M with history of daily beer drinking and poorly controlled hypertension presenting with one day of nausea, dizziness, and shortness of breath. He had just resumed 2 of his BP meds after a PCP visit 09/24 and may have been taking his new olmesartan as well as his old lisinopril (along with amlodipine and HCTZ). Evaluation in the ED included a high d-dimer and a CTA that showed small pulmonary infiltrate of RLL and small pleural effusions, and 4cm non-loculated pericardial effusion. He did not have fluid overload otherwise. He had an echocardiogram which did NOT show tamponade physiology. [facility] cardiology was consulted who recommended transfer to their service pending bed to consider pericardiocentesis. Initial evaluation was also significant for sodium of 124. He did receive one 450ml bolus of 3% saline in the ED, and follow up sodium was 133 and up to 136 the next day. He was given lower doses of his blood pressure medications and his symptoms resolved by 09/27. With the small focal lung infiltrate he was treated with ceftriaxone and doxycycline, though he had minimal respiratory symptoms. He had a new anemia with hemoglobin of 9.4, which went to 8.5 with MCV of 98 the next day without evidence of bleeding. B12 was normal. CRP was elevated at 6.36 (nl <0.5). Iron studies showed mild deficiency with trans sat of 12% but were c/w chronic disease with low TIBC and high ferritin. He did not exhibit signs of alcohol withdrawal. PENDING ON DISCHARGE: Lyme and hepatitis B screens Home Meds and New Rx's Prescriptions: No Action lisinopril 30 mg tablet 30 mg PO DAILY pravastatin 20 mg tablet 20 mg PO DAILY hydrochlorothiazide 12.5 mg tablet 12.5 mg PO DAILY vit A and D3 in cod liver oil [cod liver oil] 1 EACH capsule 1 ea PO DAILY amlodipine 10 mg tablet 10 mg PO DAILY Patient Comments: TAKE 1 TABLET BY MOUTH EVERY DAY DIRECTED FOR BLOOD PRESSURE Discharge Instructions Activity:: limited exertion Equipment/Supplies:: No Equipment Needed Diet:: As Tolerated DS: Summary Time Spent with Patient providing and/or coordinating discharge services: Greater than 30 minutes Status at Discharge Functional status at discharge: independent ambulation Overall status at discharge: patient is not back to baseline Mental Status: mental status grossly normal Speech and Movement: speech and movement normal Mood: congruent mood Affect: normal affect Quality:SDOH Health Related Social Needs: No Data to Display Exam Narrative Exam Narrative: GEN: Alert and oriented,gives history via [employer]. No acute distress at rest. LUNGS: CTAB with normal effort CV: RRR with no murmurs, gallops, or rubs. carotid pulses 2+ johnson. JVP about [id number] ABD: active bowel sounds, soft, nontender and nondistended. No masses. EXT: no cyanosis, clubbing, or edema Psych Mental Status: mental status grossly normal Speech and Movement: speech and movement normal Mood: congruent mood Affect: normal affect DS: Data Vitals/I&O Vitals and I&O: Vital Signs Temperature 36.9 C 09/27/24 18:31 Temperature Source Temporal Artery Scan 09/27/24 18:31 Pulse 81 09/27/24 18:31 Pulse Rhythm Regular 09/26/24 18:22 Pulse 65 09/26/24 17:46 Respiratory Rate 17 09/27/24 18:31 Respiratory Effort Normal, Non-Labored 09/26/24 18:22 Respiratory Depth Normal 09/26/24 18:22 Respiratory Pattern Normal 09/26/24 18:22 Blood Pressure 123/67 09/27/24 18:31 Blood Pressure Mean 85 09/27/24 18:31 Blood Pressure Position Sitting 09/26/24 10:07 Pulse Oximetry 96 09/27/24 18:31 Oxygen Delivery Method Room Air 09/27/24 18:31 Oxygen Flow Rate 0 09/27/24 18:31 Pain Level 0 09/27/24 07:33 Intake & Output 09/26/24 09/27/24 09/27/24 23:59 11:59 23:59 Intake Total 610 / 610 1030 / 2180 1150 / 2180 Balance 610 / 610 1030 / 2180 1150 / 2180 Weight 71.668 kg 156 kg Intake: IV 610 / 610 1000 / 2150 1150 / 2150 Oral Other: Urine Color Yellow Yellow Urine Appearance Clear Clear Urine Odor Normal Normal Comment Patient voids ind. in the toilet with stand by assistance. pt used bathroom to void pt. voided in toilet. Data Completed and Pending Labs on day of discharge: Labs from last 24 hours 09/27/24 07:25 WBC 5.16 RBC 2.65 L Hgb 8.5 L Hct 26.0 L MCV 98 H MCH 32.1 MCHC 32.7 RDW 12.8 Plt Count 379 MPV 9.5 Immature Gran % 0.2 Neutrophils % 60.0 Lymphocytes % 20.7 Monocytes % 13.8 Eosinophils % 4.3 Basophils % 1.0 Nucleated RBC % 0.0 Absolute Neutrophils 3.10 Absolute Lymphocytes 1.07 L Absolute Monocytes 0.71 Absolute Eosinophils 0.22 Absolute Basophils 0.05 Sodium 136 Potassium 4.2 Chloride 103 Carbon Dioxide 27.9 Anion Gap 5.1 BUN 8 Creatinine 1.0 Est GFR (CKD-EPI 2020) 83.52 Glucose 134 H Calcium 9.0 Iron 26 L TIBC 222 L Transferrin % Sat 12 L Ferritin 418 H C-Reactive Protein 6.36 H Vitamin B12 > 2000 H TSH 2.18 Lyme Disease Antibody Pending Hep Bs Antigen Pending Hep Bs Antibody Pending Hep Bs Antibody, Quant Pending Hep B Core Total Ab Pending PFSH All Active Problems (Updated 09/26/24 @ 18:52 by Yimi Pop) DVT prophylaxis (Acute) Community acquired pneumonia (Acute) Infiltrate of lower lobe of right lung present on imaging study (Acute) Pericardial effusion (Acute) Acute hyponatremia (Acute) History of colon polyps (Acute ~03/07/23) tubular adenoma 5 yrs R/T size of polyp Diverticula of colon (Acute) Predominantly right-sided Macrocytic anemia (Acute) Alcohol use (Acute) Hypertension (Chronic) Hypercholesterolemia (Acute) Patient speaks only a foreign language (Acute) Anemia (Chronic) Surgical History History of colonoscopy (~03/2023) Biopsies taken Family History (Updated 09/26/24 @ 18:40 by Yimi Pop) Father Cancer Liver Social History (Updated 09/26/24 @ 18:42 by Yimi Pop) Smoking/Tobacco Use Status: Former Tobacco Use tobacco type: cigarettes Quit Date: 05/01/19 Smoking risk assessment performed?: Yes Alcohol Intake: current Alcohol Intake frequency: 3 or more drinks per day Alcohol type: beer Drug use: Never Substance use type: does not use Details: 03/07/23:last drank 3 beers 2 days ago Housing: house Additional Social history: LIves in [place] with . 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 Works as cook Time Spent with Patient Time Spent with Patient: 45-69 minutes Time was spent: preparing to see the patient(eg.review tests), obtaining and/or reviewing separately otained hiistory, ordering medications,tests, procedures, referring, communicating with other health critical care nurse specialist, indepentently interpreting results, counseling the patient and care coordination
[2024-09-27] MEDS: Pravastatin 20 MG TAB PO (20:25)
[2024-09-28 04:04] LABS: HBs Antibody, Quant 206.7 mIU/mL (See Note); Hep B Surface Ab Positive (See Note); Hepatitis B Core Antibody Positive (Negative); Hepatitis B Surface Antigen Negative (Negative)
--- NOTE | 2024-09-28 21:19 | NUR.NOTE ---
entered chart to try to locate tele, called [facility] after seeing dc info
[2024-09-30 13:14] LABS: Lyme Ab w Rflx to Lyme Confirm Equivocal (Negative)
[2024-09-30 14:50] LABS: Lyme IgG Ab Negative (Negative); Lyme IgM Ab Negative (Negative)
== END 2024-09-27 22:36 | disposition short-term general hospital (02) | DRG 314 ==
LOC: ER 16:43 → MS 18:20
PROVIDERS: Admitting Provider Family Medicine; Emergency Provider Emergency Medicine; PCP Nurse Practitioner Family; Responsible Provider Family Medicine; Visit Provider Family Medicine
DX: I30.9 Acute pericarditis, unspecified (principal); J18.9 Pneumonia, unspecified organism; E87.1 Hypo-osmolality and hyponatremia; J91.8 Pleural effusion in other conditions classified elsewhere; I10 Essential (primary) hypertension; R07.89 Other chest pain; F10.90 Alcohol use, unspecified, uncomplicated; R11.2 Nausea with vomiting, unspecified; R06.02 Shortness of breath; D53.9 Nutritional anemia, unspecified; R79.1 Abnormal coagulation profile
CPT/HCPCS: 00123; 36415; 71275; 80048; 80053; 83690; 86617; 86704; 86706; 87340; 87637; 93005; 93306; 93308; 96361; 96365; 99285; 70450; 80320; 81003; 81015; 82565; 82607; 82728; 83540; 83550; 83735; 84300; 84443; 84484; 85025; 85379; 86140; 86618; 93010; 99223; 99239; J0696; J3490

== ENCOUNTER 2024-12-02 16:45 | Outpatient (REF) | payer MEDICARE, MEDICAID, SELFPAY ==
[2024-12-02 16:58] LABS: Iron 133 ug/dL (65-175); Total Iron Binding Capacity 301 ug/dL (250-450)
[2024-12-02 17:06] LABS: ALT 36 U/L (16-63); AST 28 U/L (15-37); Albumin 3.9 g/dL (3.4-5.0); Alkaline Phosphatase 67 U/L (46-116); Anion Gap 9.8 mmol/L (3-11); BUN 19 mg/dL (7-18); Bilirubin, Total 1.2 mg/dL (0.2-1.0); CO2 26.2 mmol/L (21.0-32.0); Calcium 9.3 mg/dL (8.5-10.1); Chloride 105 mmol/L (98-107); Estimated GFR 98.21 (mL/min/1.73m2); Ferritin 93 ng/mL (26-388); Glucose 95 mg/dL (74-106); Magnesium 2.2 mg/dL (1.8-2.4); Potassium 4.1 mmol/L (3.5-5.1); Sodium 141 mmol/L (136-145); Total Protein 7.8 g/dL (6.4-8.2); Vitamin B12 565 pg/mL (193-986)
[2024-12-02 17:07] LABS: Folate > 20.0 ng/mL (8.6-20.0)
== END 2024-12-02 16:46 | disposition home or self-care (01) ==
LOC: NCHCN 16:45
PROVIDERS: PCP Nurse Practitioner Family; Visit Provider Nurse Practitioner Family
DX: D50.9 Iron deficiency anemia, unspecified (principal); I10 Essential (primary) hypertension
CPT/HCPCS: 80053; 82607; 82728; 82746; 83540; 83550; 83735